=== PATIENT | female | born 1975 | race Caucasian/White ===

== ENCOUNTER 2021-06-03 10:10 | Observation (INO) | payer MEDICAID ==
[2021-06-03] MEDS ORDERED: Sodium Chloride 0.9% 2.5 ML Syringe FLUSH PRN (10:19)
[2021-06-03] MEDS ORDERED: Sodium Chloride 0.9% 10 ML Syringe FLUSH PRN (10:19)
--- NOTE | 2021-06-03 10:25 | EDM.PDOC ---
ED HPI GENERAL MEDICAL PROBLEM - General Chief Complaint: Neuro Symptoms/Deficits Stated Complaint: twitching and lft arm numb Time Seen by Provider: 06/03/21 10:20 - History of Present Illness INITIAL COMMENTS - FREE TEXT/NARRATIVE: 45-year-old female presents complaining of diffuse body shaking and paresthesias in the right upper extremity. Patient denies significant headache. Patient did states she had 8 or 9 drinks yesterday. Patient denies any head trauma. Patient recently got over Covid about a month ago. No history of cancer. No arm or leg weakness or additional neuro symptoms. Moderate symptoms without exacerbating or leaving factors. No chest pain or shortness of breath - Related Data Allergies Allergy/AdvReac Type Severity Reaction Status Date / Time clarithromycin [From Biaxin] Allergy Dizziness Verified 06/03/21 10:51 latex Allergy Hives Verified 06/03/21 10:51 ED ROS GENERAL - Review of Systems Review Of Systems: Comprehensive ROS is negative, except as noted in HPI. ED EXAM, GENERAL - Physical Exam Exam: See Below Free Text/Narrative:: CONSTITUTIONAL: well appearing in no acute distress SKIN: Warm, dry, and intact without rash HENT: Normocephalic, atraumatic, PULMONARY: clear to ausculation bilaterally. No rales, rhonchi, wheezing CARDIOVASCULAR: regular rate, No murmur, rubs, or gallops GASTROINTESTINAL: soft, nondistended, nontender NEUROLOGIC: normal speech, II-XII intact. Patient able to describe contacts without difficulty. Normal peripheral vision. Patient is alert and oriented. Patient with some minor paresthesias to the right arm. She has some mild diffuse body tremors but otherwise the additional light touch from 5 out of 5 power bilateral equal and symmetric in upper and lower extremity throughout without deficit. MUSCULOSKELETAL: no gross deformities, atraumatic PSYCHIATRIC: normal mood and affect #1 Interpretation Time: 10:59 EKG Interpretation Comments: 81, normal sinus rhythm, nonspecific ST/T findings. In contrast to the computer read there is no A. fib Course - Vital Signs Text/Narrative:: Differential diagnosis: CVA, central venous thrombosis, TIA, electrolyte abnormalities, cervical spine pathology, alcohol withdrawal, infection, other She presents as outlined above. CT imaging of the head and neck are unre vealing. Patient was given Ativan and is feeling better. The shaking and paresthesias have since resolved. Patient states convincingly that that she is not a heavy drinker and that she is not at risk for withdrawal. There is no definitive infectious source. The urine does have some leukocyte esterase but there is no dysuria. This has been sent for culture. There is no fever or leukocytosis. The patient upon requestioning states that she had slurred speech yesterday. She is concerned for CVA and thus arrangements have been made for admission, MRI and CVA work-up. Patient admitted for continued treatment and management Last Recorded V/S: Last Vital Signs Temp 36.3 C 06/03/21 10:19 Pulse 79 06/03/21 12:25 Resp 18 06/03/21 12:25 BP 164/89 H 06/03/21 12:25 Pulse Ox 98 06/03/21 12:25 - Orders/Labs/Meds Orders: Active Orders 24 hr Category Date Time Status Cardiac Monitoring [RC] . DIRECTED Care 06/03/21 10:20 Active Pulse Oximetry [RC] ASDIRECTED Care 06/03/21 10:20 Active Brain w wo Cont [MR] Stat Exams 06/03/21 12:58 Ordered CULTURE URINE [MREF] Stat Lab 06/03/21 11:20 Received DRUG SCREEN, URINE [URCHEM] Stat Lab 06/03/21 12:58 Ordered ETHANOL BLOOD MEDICAL [CHEM] Stat Lab 06/03/21 12:58 Ordered MAGNESIUM [CHEM] Stat Lab 06/03/21 12:58 Ordered Sodium Chloride 0.9% [Saline Flush] Med 06/03/21 10:19 Active 10 ml FLUSH ASDIRECTED PRN Sodium Chloride 0.9% [Saline Flush] Med 06/03/21 10:19 Active 2.5 ml FLUSH ASDIRECTED PRN Saline Lock Insert [OM.PC] Stat Oth 06/03/21 10:20 Ordered Medication Orders Sodium Chloride (Sodium Chloride 0.9% 10 Ml Syringe) 10 ml FLUSH ASDIRECTED PRN PRN Reason: Keep Vein Open Last Admin: 06/03/21 10:54 Dose: 10 ml Documented by: SAMI Sodium Chloride (Sodium Chloride 0.9% 2.5 Ml Syringe) 2.5 ml FLUSH ASDIRECTED PRN PRN Reason: Keep Vein Open Last Admin: 06/03/21 10:54 Dose: 2.5 ml Documented by: SAMI Labs: Laboratory Tests 06/03/21 06/03/21 06/03/21 Range/Units 10:16 10:16 10:16 WBC 7.02 (4.0-11.0) K/uL RBC 4.40 (4.30-5.90) M/uL Hgb 10.1 L (12.0-16.0) g/dL Hct 32.6 L (36.0-46.0) % MCV 74.1 L (80.0-98.0) fL MCH 23.0 L (27.0-32.0) pg MCHC 31.0 (31.0-37.0) g/dL RDW Std Deviation 49.1 (28.0-62.0) fl RDW Coeff of Nick 18 H (11.0-15.0) % Plt Count 449 H (150-400) K/uL MPV 9.00 (7.40-12.00) fL Neut % (Auto) 58.3 (48.0-80.0) % Lymph % (Auto) 30.2 (16.0-40.0) % [place] % (Auto) 8.1 (0.0-15.0) % Eos % (Auto) 2.3 (0.0-7.0) % Baso % (Auto) 1.1 (0.0-1.5) % Neut # (Auto) 4.1 (1.4-5.7) K/uL Lymph # (Auto) 2.1 (0.6-2.4) K/uL Wink[place] # (Auto) 0.6 (0.0-0.8) K/uL Eos # (Auto) 0.2 (0.0-0.7) K/uL Baso # (Auto) 0.1 (0.0-0.1) K/uL Nucleated RBC % 0.0 /100WBC Nucleated RBCs # 0 K/uL INR 0.98 APTT 23.9 (18.6-31.3) SEC Sodium 138 (136-145) mmol/L Potassium 4.0 (3.5-5.1) mmol/L Chloride 103 (98-107) mmol/L Carbon Dioxide 24.2 (21.0-32.0) mmol/L BUN 9 (7.0-18.0) mg/dL Creatinine 0.7 (0.6-1.0) mg/dL Est Cr Clr Drug Dosing 98.69 mL/min Estimated GFR (MDRD) > 60.0 ml/min Glucose 101 (74-106) mg/dL Calcium 8.8 (8.5-10.1) mg/dL Total Bilirubin 0.3 (0.2-1.0) mg/dL AST 40 H (15-37) IU/L ALT 35 (14-63) IU/L Alkaline Phosphatase 107 (46-116) U/L Troponin I < 0.050 (0.000-0.056) ng/mL Total Protein 8.2 (6.4-8.2) g/dL Albumin 3.5 (3.4-5.0) g/dL Globulin 4.7 H (2.6-4.0) g/dL Albumin/Globulin Ratio 0.7 L (0.9-1.6) Urine Color Urine Appearance Urine pH (5.0-8.0) Ur Specific [place] (1.001-1.035) Urine Protein (NEGATIVE) mg/dL Urine Glucose (UA) (NEGATIVE) mg/dL Urine Ketones (NEGATIVE) mg/dL Urine Occult Blood (NEGATIVE) Urine Nitrite (NEGATIVE) Urine Bilirubin (NEGATIVE) Urine Urobilinogen (<2.0) EU/dL Ur Leukocyte Esterase (NEGATIVE) Urine RBC (0-2/HPF) Urine WBC (0-5/HPF) Ur Epithelial Cells (NONE-FEW) Urine Bacteria (NEGATIVE) Urine Yeast 06/03/21 Range/Units 11:20 WBC (4.0-11.0) K/uL RBC (4.30-5.90) M/uL Hgb (12.0-16.0) g/dL Hct (36.0-46.0) % MCV (80.0-98.0) fL MCH (27.0-32.0) pg MCHC (31.0-37.0) g/dL RDW Std Deviation (28.0-62.0) fl RDW Coeff of Nick (11.0-15.0) % Plt Count (150-400) K/uL MPV (7.40-12.00) fL Neut % (Auto) (48.0-80.0) % Lymph % (Auto) (16.0-40.0) % [place]ink[place] % (Auto) (0.0-15.0) % Eos % (Auto) (0.0-7.0) % Baso % (Auto) (0.0-1.5) % Neut # (Auto) (1.4-5.7) K/uL Lymph # (Auto) (0.6-2.4) K/uL Wink[place] # (Auto) (0.0-0.8) K/uL Eos # (Auto) (0.0-0.7) K/uL Baso # (Auto) (0.0-0.1) K/uL Nucleated RBC % /100WBC Nucleated RBCs # K/uL INR APTT (18.6-31.3) SEC Sodium (136-145) mmol/L Potassium (3.5-5.1) mmol/L Chloride (98-107) mmol/L Carbon Dioxide (21.0-32.0) mmol/L BUN (7.0-18.0) mg/dL Creatinine (0.6-1.0) mg/dL Est Cr Clr Drug Dosing mL/min Estimated GFR (MDRD) ml/min Glucose (74-106) mg/dL Calcium (8.5-10.1) mg/dL Total Bilirubin (0.2-1.0) mg/dL AST (15-37) IU/L ALT (14-63) IU/L Alkaline Phosphatase (46-116) U/L Troponin I (0.000-0.056) ng/mL Total Protein (6.4-8.2) g/dL Albumin (3.4-5.0) g/dL Globulin (2.6-4.0) g/dL Albumin/Globulin Ratio (0.9-1.6) Urine Color YELLOW Urine Appearance HAZY Urine pH 6.0 (5.0-8.0) Ur Specific [place] <= 1.005 (1.001-1.035) Urine Protein NEGATIVE (NEGATIVE) mg/dL Urine Glucose (UA) NEGATIVE (NEGATIVE) mg/dL Urine Ketones NEGATIVE (NEGATIVE) mg/dL Urine Occult Blood TRACE-INTACT H (NEGATIVE) Urine Nitrite NEGATIVE (NEGATIVE) Urine Bilirubin NEGATIVE (NEGATIVE) Urine Urobilinogen 0.2 (<2.0) EU/dL Ur Leukocyte Esterase MODERATE H (NEGATIVE) Urine RBC 0-2 (0-2/HPF) Urine WBC 1-3 (0-5/HPF) Ur Epithelial Cells FEW (NONE-FEW) Urine Bacteria FEW (NEGATIVE) Urine Yeast RARE Meds: Medications Generic Name Dose Route Start Last Admin Trade Name Alexq PRN Reason Stop Dose Admin Sodium Chloride 10 ml 06/03/21 10:19 06/03/21 10:54 Sodium Chloride 0.9% 10 Ml Syringe FLUSH 10 ml ASDIRECTED PRN Administration Keep Vein Open Sodium Chloride 2.5 ml 06/03/21 10:19 06/03/21 10:54 Sodium Chloride 0.9% 2.5 Ml Syringe FLUSH 2.5 ml ASDIRECTED PRN Administration Keep Vein Open Discontinued Medications Generic Name Dose Route Start Last Admin Trade Name Alexq PRN Reason Stop Dose Admin Gadobenate Dimeglumine 20 ml 06/03/21 13:04 Gadobenate Dimeglumine 529 Mg/Ml 20 Ml Sdv IVPUSH 06/03/21 13:05 ONETIME STA Sodium Chloride 1,000 mls @ 999 mls/hr 06/03/21 11:26 06/03/21 11:43 Normal Saline IV 06/03/21 12:26 999 mls/hr .BOLUS ONE Administration Iopamidol 100 ml 06/03/21 10:41 06/03/21 10:42 Iopamidol 755 Mg/Ml 500 Ml Multipack Bottle IVPUSH 06/03/21 10:42 100 ml ONETIME STA Administration Lorazepam 2 mg 06/03/21 11:27 06/03/21 11:43 Lorazepam 2 Mg/Ml Sdv IVPUSH 06/03/21 11:28 2 mg ONETIME ONE Administration Departure - Departure Time of Disposition: 13:08 Disposition: Refer to Observation Condition: Good Clinical Impression: Paresthesia of right arm - Discharge Information Forms: ED Department Discharge Sepsis Event Note (ED) - Evaluation Sepsis Screening Result: No Definite Risk - Focused Exam Vital Signs: Vital Signs Temp Pulse Resp BP Pulse Ox 06/03/21 12:25 79 18 164/89 H 98 06/03/21 11:48 79 15 172/92 H 99 06/03/21 10:55 78 17 178/97 H 98 06/03/21 10:19 36.3 C 87 18 175/112 H 100 - My Orders Last 24 Hours: My Active Orders 06/03/21 10:19 Sodium Chloride 0.9% [Saline Flush] 10 ml FLUSH ASDIRECTED PRN Sodium Chloride 0.9% [Saline Flush] 2.5 ml FLUSH ASDIRECTED PRN 06/03/21 10:20 Cardiac Monitoring [RC] . DIRECTED Pulse Oximetry [RC] ASDIRECTED Saline Lock Insert [OM.PC] Stat 06/03/21 11:20 CULTURE URINE [MREF] Stat - Assessment/Plan Last 24 Hours: My Active Orders 06/03/21 10:19 Sodium Chloride 0.9% [Saline Flush] 10 ml FLUSH ASDIRECTED PRN Sodium Chloride 0.9% [Saline Flush] 2.5 ml FLUSH ASDIRECTED PRN 06/03/21 10:20 Cardiac Monitoring [RC] . DIRECTED Pulse Oximetry [RC] ASDIRECTED Saline Lock Insert [OM.PC] Stat 06/03/21 11:20 CULTURE URINE [MREF] Stat
[2021-06-03] MEDS ORDERED: Iopamidol 755 MG/ML 500 ML Multipack Bottle IVPUSH STA (10:41)
--- NOTE | 2021-06-03 11:04 | CT ---
DATE: 06/03/2021. CLINICAL HISTORY: Acute neurological deficit. TECHNIQUE: Standard helical CT image acquisition of the brain was performed. COMPARISON: None available. FINDINGS: There is no intracranial hemorrhage. No extra-axial collection, mass effect, or midline shift. Babb-white matter differentiation is preserved. Ventricles are normal in size and morphology for patient age. The calvarium is unremarkable. The orbits are unremarkable. Moderate mucosal thickening the left maxillary sinus as well as mucosal thickening and subtotal opacification of the bilateral sphenoid sinuses and ethmoid air cells, noting superimposed frothy secretions within the sphenoid sinuses. The mastoid air cells are unremarkable. The soft tissues are unremarkable. IMPRESSION: 1. No CT evidence of acute intracranial abnormality. 2. Moderate paranasal sinus disease, as above. Please note that all CT scans at this facility use dose modulation, iterative reconstruction, and/or weight-based dosing when appropriate to reduce radiation dose to as low as reasonably achievable. Dictated by Ibrahima Vieira MD @ 06/03/2021 11:03:09 AM (Electronically Signed)
--- NOTE | 2021-06-03 11:10 | CT ---
DATE: 06/03/2021. CLINICAL HISTORY: Acute neurological deficit. TECHNIQUE: Standard helical CT image acquisition through the head was performed after intravenous contrast bolus enhancement. Multiplanar reconstructed images were performed and interpreted. COMPARISON: None available. FINDINGS: No intracranial proximal large vessel occlusion or flow-limiting no stenosis. The major dural venous sinuses and deep venous system are patent. IMPRESSION: 1. No intracranial proximal large vessel occlusion or flow-limiting no stenosis. 2. The major dural venous sinuses and deep venous system are patent. Please note that all CT scans at this facility use dose modulation, iterative reconstruction, and/or weight-based dosing when appropriate to reduce radiation dose to as low as reasonably achievable. Dictated by Ibrahima Vieira MD @ 06/03/2021 11:09:21 AM (Electronically Signed)
--- NOTE | 2021-06-03 11:17 | CR ---
Indication: Chest pain Comparison: None available. Technique: Single AP view chest Findings: There is hyperinflation and chronic interstitial change. There is no focal consolidation, effusion, or pneumothorax. The cardiomediastinal silhouette is within normal limits. The bony thorax is grossly intact. Impression: No acute cardiopulmonary abnormality. Dictated by Ephraim Mackey MD @ 06/03/2021 11:15:38 AM (Electronically Signed)
[2021-06-03 11:25] LABS: BLOOD UREA NITROGEN,BUN 9 mg/dL (7.0-18.0); CARBON DIOXIDE,CO2 24.2 mmol/L (21.0-32.0); CHLORIDE,CL 103 mmol/L (98-107); GLUCOSE RANDOM 101 mg/dL (74-106); SODIUM,NA 138 mmol/L (136-145)
[2021-06-03] MEDS ORDERED: Sodium Chloride 0.9% 1,000 ML IV ONE (11:26)
[2021-06-03] MEDS ORDERED: LORazepam 2 MG/ML SDV IVPUSH ONE (11:27)
--- NOTE | 2021-06-03 11:31 | CT ---
DATE: 06/03/2021. CLINICAL HISTORY: Acute stroke. TECHNIQUE: Standard helical CT image acquisition through the neck was performed after intravenous contrast bolus enhancement. Multiplanar reconstructed images were performed and interpreted. COMPARISON: None available. FINDINGS: The origins of the great vessels from the aortic arch are patent. The origins of the right and left vertebral arteries are patent. The common carotid arteries are patent. No significant luminal stenoses of the proximal internal carotid arteries by NASCET criteria. The more distal cervical segments of the internal carotid arteries are patent. The cervical segments of the vertebral arteries are patent. Peripheral blebs are seen at the visualized lung apices. The thyroid gland is unremarkable. There are degenerative changes in the cervical spine. IMPRESSION: Patent cervical arterial vasculature without hemodynamically significant luminal stenosis. Please note that all CT scans at this facility use dose modulation, iterative reconstruction, and/or weight-based dosing when appropriate to reduce radiation dose to as low as reasonably achievable. Dictated by Ibrahima Vieira MD @ 06/03/2021 11:30:46 AM (Electronically Signed)
[2021-06-03] MEDS ORDERED: Gadobenate Dimeglumine 529 MG/ML 20 ML SDV IVPUSH STA (13:04)
--- NOTE | 2021-06-03 13:27 | PCM.HP.2 ---
H&P History of Present Illness - General Date of Service: 06/03/21 - History of Present Illness Initial Comments - Free Text/Narative: 45-year-old female presents to the ER with complaints of right upper extremity paresthesias and tremors. Patient endorses slurred speech yesterday. Stroke code was called. Patient is a poor historian regarding past medical history. Patient denies headaches, lightheadedness, dizziness or loss of consciousness. Patient states she had COVID over 1 month ago. Patient denies current weakness, numbness, paresthesias, slurred speech, difficulty ambulating changes in vision. Patient states she had 8-10 shots of liquor yesterday. ER course: Neurologic exam unremarkable except minor paresthesias to right arm. EKG is normal sinus rhythm, nonspecific ST/T findings. Blood pressure 164/89. Temperature 36.3. Pulse 79. RR 18. CT head and neck was unremarkable. Patient received Ativan and began feeling better. Shaking and paresthesia r esolved. Patient refused heavy alcohol use to the ER. WBC 7. Hemoglobin 10.1. MCV 74.1. Platelet count 449. INR 0.98. BMP unremarkable. AST 40. Upon chart review, it appears she has a history of hypertension, CHF, daily alcohol consumption and saw cardiology in January 2021 for heart failure. According to cardiology note, patient had stated when she was 19 years old she was diagnosed with CHF and had a heart attack but having a for . Note also states the details were not very clear. As per cardiology note, she has had episodes of blood pressure greater than 160 systolic. Episode of associated chest pain and severe headache but no timeline. Patient is on carvedilol 10 mg and Lasix 20 mg. Stress test was negative for ischemia. As per cardiology note: She drinks a sixpack every day. Smokes 2 packs/week. 10 cups of coffee daily. 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: , Other (See Below) Other OB/BYN History: ovarian cysts Musculoskeletal History: Reports: RA Neurological History: Reports: None Psychiatric History: Reports: None Endocrine/Metabolic History: Reports: None Hematologic History: Reports: None Immunologic History: Reports: None Oncologic (Cancer) History: Reports: None Dermatologic History: Reports: None - Infectious Disease History Infectious Disease History: Reports: Chicken Pox - Past Surgical History Head Surgeries/Procedures: Reports: None HEENT Surgical History: Reports: None Cardiovascular Surgical History: Reports: None Respiratory Surgical History: Reports: None GI Surgical History: Reports: None Female Surgical History: Reports: Section, Tubal Ligation Endocrine Surgical History: Reports: None Neurological Surgical History: Reports: None Musculoskeletal Surgical History: Reports: None Oncologic Surgical History: Reports: None Dermatological Surgical History: Reports: None Social & Family History - Family History Family Medical History: No Pertinent Family History - Caffeine Use Caffeine Use: Reports: None - Recreational Drug Use Recreational Drug Use: No H&P Review of Systems - Review of Systems: Review Of Systems: See Below General: Denies: Fever, Diaphoresis HEENT: Denies: Headaches, Vertigo, Visual Changes Pulmonary: Denies: Shortness of Breath, Wheezing, Pleuritic Chest Pain Cardiovascular: Denies: Chest Pain, Palpitations Gastrointestinal: Denies: Abdominal Pain, Diarrhea, Nausea, Vomiting Genitourinary: Denies: Dysuria, Burning, Pain, Urgency Skin: Denies: Rash Neurological: Reports: Numbness, Paresthesia, Tingling, Tremors, Trouble Speaking. Denies: Confusion, Dizziness, Headache, Difficulty Walking, Weakness Hematologic/Lymphatic: Denies: Easy Bleeding, Easy Bruising Exam - Exam Exam: See Below - Vital Signs Vital Signs: Last Vital Signs Temp 97.4 F 06/03/21 10:19 Pulse 79 06/03/21 12:25 Resp 18 06/03/21 12:25 BP 164/89 H 06/03/21 12:25 Pulse Ox 98 06/03/21 12:25 Weight: 169 lb 1.6 oz - Exam General: Alert, Oriented, Mild Distress HEENT: Conjunctiva Clear, EACs Clear, EOMI, Hearing Intact, Mucosa Moist & [place] Neck: Supple, Trachea Midline Lungs: Clear to Auscultation Cardiovascular: Regular Rate, Regular Rhythm GI/Abdominal Exam: Normal Bowel Sounds, Soft, Non-Tender Back Exam: Normal Inspection Extremities: Normal Inspection, Non-Tender. No: Pedal Edema Peripheral Pulses: 2+: Dorsalis Pedis (L), Dorsalis Pedis (R) Skin: Warm, Dry, Intact Neurological: Cranial Nerves Intact, Reflexes Equal Bilateral, Normal Speech, Normal Tone, Sensation Intact. No: Focal Deficit - Patient Data Lab Results Last 24 hrs: Laboratory Results - last 24 hr 06/03/21 06/03/21 06/03/21 Range/Units 10:16 10:16 10:16 WBC 7.02 (4.0-11.0) K/uL RBC 4.40 (4.30-5.90) M/uL Hgb 10.1 L (12.0-16.0) g/dL Hct 32.6 L (36.0-46.0) % MCV 74.1 L (80.0-98.0) fL MCH 23.0 L (27.0-32.0) pg MCHC 31.0 (31.0-37.0) g/dL RDW Std Deviation 49.1 (28.0-62.0) fl RDW Coeff of Nick 18 H (11.0-15.0) % Plt Count 449 H (150-400) K/uL MPV 9.00 (7.40-12.00) fL Neut % (Auto) 58.3 (48.0-80.0) % Lymph % (Auto) 30.2 (16.0-40.0) % [place] % (Auto) 8.1 (0.0-15.0) % Eos % (Auto) 2.3 (0.0-7.0) % Baso % (Auto) 1.1 (0.0-1.5) % Neut # (Auto) 4.1 (1.4-5.7) K/uL Lymph # (Auto) 2.1 (0.6-2.4) K/uL [place] # (Auto) 0.6 (0.0-0.8) K/uL Eos # (Auto) 0.2 (0.0-0.7) K/uL Baso # (Auto) 0.1 (0.0-0.1) K/uL Nucleated RBC % 0.0 /100WBC Nucleated RBCs # 0 K/uL INR 0.98 APTT 23.9 (18.6-31.3) SEC Sodium 138 (136-145) mmol/L Potassium 4.0 (3.5-5.1) mmol/L Chloride 103 (98-107) mmol/L Carbon Dioxide 24.2 (21.0-32.0) mmol/L BUN 9 (7.0-18.0) mg/dL Creatinine 0.7 (0.6-1.0) mg/dL Est Cr Clr Drug Dosing 98.69 mL/min Estimated GFR (MDRD) > 60.0 ml/min Glucose 101 (74-106) mg/dL Calcium 8.8 (8.5-10.1) mg/dL Total Bilirubin 0.3 (0.2-1.0) mg/dL AST 40 H (15-37) IU/L ALT 35 (14-63) IU/L Alkaline Phosphatase 107 (46-116) U/L Troponin I < 0.050 (0.000-0.056) ng/mL Total Protein 8.2 (6.4-8.2) g/dL Albumin 3.5 (3.4-5.0) g/dL Globulin 4.7 H (2.6-4.0) g/dL Albumin/Globulin Ratio 0.7 L (0.9-1.6) Urine Color Urine Appearance Urine pH (5.0-8.0) Ur Specific [place] (1.001-1.035) Urine Protein (NEGATIVE) mg/dL Urine Glucose (UA) (NEGATIVE) mg/dL Urine Ketones (NEGATIVE) mg/dL Urine Occult Blood (NEGATIVE) Urine Nitrite (NEGATIVE) Urine Bilirubin (NEGATIVE) Urine Urobilinogen (<2.0) EU/dL Ur Leukocyte Esterase (NEGATIVE) Urine RBC (0-2/HPF) Urine WBC (0-5/HPF) Ur Epithelial Cells (NONE-FEW) Urine Bacteria (NEGATIVE) Urine Yeast 06/03/ Range/Units 11:20 WBC (4.0-11.0) K/uL RBC (4.30-5.90) M/uL Hgb (12.0-16.0) g/dL Hct (36.0-46.0) % MCV (80.0-98.0) fL MCH (27.0-32.0) pg MCHC (31.0-37.0) g/dL RDW Std Deviation (28.0-62.0) fl RDW Coeff of Nick (11.0-15.0) % Plt Count (150-400) K/uL MPV (7.40-12.00) fL Neut % (Auto) (48.0-80.0) % Lymph % (Auto) (16.0-40.0) % [place] % (Auto) (0.0-15.0) % Eos % (Auto) (0.0-7.0) % Baso % (Auto) (0.0-1.5) % Neut # (Auto) (1.4-5.7) K/uL Lymph # (Auto) (0.6-2.4) K/uL [place] # (Auto) (0.0-0.8) K/uL Eos # (Auto) (0.0-0.7) K/uL Baso # (Auto) (0.0-0.1) K/uL Nucleated RBC % /100WBC Nucleated RBCs # K/uL INR APTT (18.6-31.3) SEC Sodium (136-145) mmol/L Potassium (3.5-5.1) mmol/L Chloride (98-107) mmol/L Carbon Dioxide (21.0-32.0) mmol/L BUN (7.0-18.0) mg/dL Creatinine (0.6-1.0) mg/dL Est Cr Clr Drug Dosing mL/min Estimated GFR (MDRD) ml/min Glucose (74-106) mg/dL Calcium (8.5-10.1) mg/dL Total Bilirubin (0.2-1.0) mg/dL AST (15-37) IU/L ALT (14-63) IU/L Alkaline Phosphatase (46-116) U/L Troponin I (0.000-0.056) ng/mL Total Protein (6.4-8.2) g/dL Albumin (3.4-5.0) g/dL Globulin (2.6-4.0) g/dL Albumin/Globulin Ratio (0.9-1.6) Urine Color YELLOW Urine Appearance HAZY Urine pH 6.0 (5.0-8.0) Ur Specific [place] <= 1.005 (1.001-1.035) Urine Protein NEGATIVE (NEGATIVE) mg/dL Urine Glucose (UA) NEGATIVE (NEGATIVE) mg/dL Urine Ketones NEGATIVE (NEGATIVE) mg/dL Urine Occult Blood TRACE-INTACT H (NEGATIVE) Urine Nitrite NEGATIVE (NEGATIVE) Urine Bilirubin NEGATIVE (NEGATIVE) Urine Urobilinogen 0.2 (<2.0) EU/dL Ur Leukocyte Esterase MODERATE H (NEGATIVE) Urine RBC 0-2 (0-2/HPF) Urine WBC 1-3 (0-5/HPF) Ur Epithelial Cells FEW (NONE-FEW) Urine Bacteria FEW (NEGATIVE) Urine Yeast RARE Result Diagrams: 06/03/21 10:16 06/03/21 10:16 Sepsis Event Note - Evaluation Sepsis Screening Result: No Definite Risk - Focused Exam Vital Signs: Vital Signs Temp Pulse Resp BP Pulse Ox 06/03/21 12:25 79 18 164/89 H 98 06/03/21 11:48 79 15 172/92 H 99 06/03/21 10:55 78 17 178/97 H 98 06/03/21 10:19 97.4 F 87 18 175/112 H 100 - Problem List (1) Tremor SNOMED Code(s): 24158095 ICD Code: R25.1 - TREMOR, UNSPECIFIED Status: Acute Current Visit: Yes (2) History of alcohol abuse SNOMED Code(s): 930528630 ICD Code: F10.11 - ALCOHOL ABUSE, IN REMISSION Status: Acute Current Visit: Yes (3) Paresthesia of right arm SNOMED Code(s): 47461763685486150 ICD Code: R20.2 - PARESTHESIA OF SKIN Status: Acute Current Visit: Yes Problem List Initiated/Reviewed/Updated: Yes Orders Last 24hrs: Active Orders 24 hr Category Date Time Status Cardiac Monitoring [RC] . DIRECTED Care 06/03/21 10:20 Active Pulse Oximetry [RC] ASDIRECTED Care 06/03/21 10:20 Active Brain w wo Cont [MR] Stat Exams 06/03/21 12:58 Ordered CULTURE URINE [MREF] Stat Lab 06/03/21 11:20 Received DRUG SCREEN, URINE [URCHEM] Stat Lab 06/03/21 11:20 Received ETHANOL BLOOD MEDICAL [CHEM] Stat Lab 06/03/21 10:16 Received MAGNESIUM [CHEM] Stat Lab 06/03/21 10:16 Received Sodium Chloride 0.9% [Saline Flush] Med 06/03/21 10:19 Active 10 ml FLUSH ASDIRECTED PRN Sodium Chloride 0.9% [Saline Flush] Med 06/03/21 10:19 Active 2.5 ml FLUSH ASDIRECTED PRN Saline Lock Insert [OM.PC] Stat Oth 06/03/21 10:20 Ordered Medication Orders Sodium Chloride (Sodium Chloride 0.9% 10 Ml Syringe) 10 ml FLUSH ASDIRECTED PRN PRN Reason: Keep Vein Open Last Admin: 06/03/21 10:54 Dose: 10 ml Documented by: SAMI Sodium Chloride (Sodium Chloride 0.9% 2.5 Ml Syringe) 2.5 ml FLUSH ASDIRECTED PRN PRN Reason: Keep Vein Open Last Admin: 06/03/21 10:54 Dose: 2.5 ml Documented by: SAMI Assessment/Plan Comment:: 45-year-old female admitted with paresthesias and tremor. -Stroke work-up: [place], vitamin B12 level, echocardiogram, ESR, lipid panel, syphi lis screen, TSH. -Monitor telemetry. -History of alcohol abuse. Patient had 8-10 shots yesterday. Upon chart review, patient has history of alcohol abuse unable. [facility] protocol in place.
[2021-06-03] MEDS ORDERED: Ibuprofen 200 MG Tab PO PRN (13:43)
[2021-06-03] MEDS ORDERED: Ondansetron 4 MG/2 ML SDV IVPUSH PRN (13:43)
[2021-06-03] MEDS ORDERED: LORazepam 2 MG/ML SDV IVPUSH PRN (13:43)
[2021-06-03] MEDS ORDERED: Acetaminophen 325 MG Tab PO PRN (13:43)
[2021-06-03] MEDS ORDERED: Polyethylene Glycol 3350 Powder 17 GM Packet PO PRN (13:43)
[2021-06-03] MEDS ORDERED: Albuterol/Ipratropium 3.0-0.5 MG/3 ML Neb Soln NEB PRN (13:43)
--- NOTE | 2021-06-03 14:31 | MR ---
INDICATION: Slurred speech. Numbness. TECHNIQUE: Multiplanar multisequence MR imaging acquired through the brain prior to and following intravenous contrast. COMPARISON: CT brain 06/03/2021. FINDINGS: Artifact significantly degrades the susceptibility weighted sequence. Motion artifact degrades the postcontrast sequences. The ventricles and sulci are within normal limits for patient age. No mass effect or midline shift. No parenchymal signal abnormalities. No diffusion restriction to suggest acute infarction. No intracranial hemorrhage or pathologic extra-axial fluid collection. No pathologic intracranial enhancement. The major arterial flow voids of the skullbase are preserved. The globes are symmetric. Moderately severe opacification of the left maxillary and sphenoid sinuses. The mastoid air cells are clear. IMPRESSION: 1. No acute intracranial abnormality. 2. Moderately severe left maxillary and sphenoid sinuses inflammatory mucosal disease. Dictated by Chino Can MD @ 06/03/2021 2:30:24 PM (Electronically Signed)
[2021-06-03 14:35] LABS: CORONAVIRUS COVID-19 NAA POSITIVE (NEGATIVE); INFLUENZA A NAA NEGATIVE (NEGATIVE); INFLUENZA B NAA NEGATIVE (NEGATIVE); RESPIRATORY SYNCYTIAL VIR NAA NEGATIVE (NEGATIVE)
[2021-06-03] MEDS ORDERED: Thiamine 100 MG in Sodium Chloride 0.9% 100 ML IV ONE (14:56)
[2021-06-03] MEDS ORDERED: Thiamine 200 MG/2 ML MDV IVPUSH ONE (15:15)
[2021-06-03] MEDS: ALOE TOP SCH (20:36)
[2021-06-03] MEDS: [UNRECOGNIZED DRUG - OTHER] TOP SCH (20:36)
[2021-06-03] MEDS: BENZOCAINE TOP SCH (20:36)
[2021-06-03] MEDS ORDERED: Folic Acid 1 MG Tab PO SCH (21:00)
[2021-06-04 07:17] LABS: BLOOD UREA NITROGEN,BUN 9 mg/dL (7.0-18.0); CARBON DIOXIDE,CO2 27.5 mmol/L (21.0-32.0); CHLORIDE,CL 104 mmol/L (98-107); GLUCOSE RANDOM 87 mg/dL (74-106); POTASSIUM,K 3.9 mmol/L (3.5-5.1); SODIUM,NA 140 mmol/L (136-145)
[2021-06-04] MEDS ORDERED: CARVEDILOL 20 MG PO SCH (09:00)
[2021-06-04] MEDS ORDERED: Ferrous Sulfate 325 MG Tab PO SCH (09:00)
[2021-06-04] MEDS ORDERED: Furosemide 20 MG Tab PO SCH (09:00)
--- NOTE | 2021-06-04 10:04 | PCM.DCSUM1 ---
Discharge Summary - Hospital Course Free Text/Narrative:: 45-year-old female admitted for upper extremity paresthesias, tremors and alcohol withdrawal. Patient received Ativan in the ER and symptoms subsided. Patient was observed overnight, CIWA's were 00 and 3. Patient did require Ativan x1. This morning she appears agitated. She states she wants to go home. Patient was worked up for neurologic etiology. Lipid panel, B12, TSH were unremarkable. Brain imaging was unremarkable. Patient is drinking 8-10 shots of liquor per day. She is not willing to cut back. Patient tested positive for Covid 1 month ago, as per history taken. Patient is on room air. No treatment for Covid. ER course: Neurologic exam unremarkable except minor paresthesias to right arm. EKG is normal sinus rhythm, nonspecific ST/T findings. Blood pressure 164/89. Temperature 36.3. Pulse 79. RR 18. CT head and neck was unremarkable. Patient received Ativan and began feeling better. Shaking and paresthesia resolved. Patient refused heavy alcohol use to the ER. WBC 7. Hemoglobin 10.1. MCV 74.1. Platelet count 449. INR 0.98. BMP unremarkable. AST 40. Upon chart review, it appears she has a history of hypertension, CHF, daily alcohol consumption and saw cardiology in January 2021 for heart failure. According to cardiology note, patient had stated when she was 19 years old she was diagnosed with CHF and had a heart attack but having a for . Note also states the details were not very clear. As per cardiology note, she has had episodes of blood pressure greater than 160 systolic. Patient is on carvedilol 10 mg and Lasix 20 mg. Stress test was negative for ischemia. As per cardiology note: She drinks a sixpack every day. Smokes 2 packs/week. 10 cups of coffee daily. - Discharge Data Discharge Date: 06/04/21 Discharge Disposition: Home, Self-Care 01 Condition: Stable - Referral to Home Health Primary Care Physician: Jessica Knight, DO - Discharge Diagnosis/Problem(s) (1) Tremor SNOMED Code(s): 79669563 ICD Code: R25.1 - TREMOR, UNSPECIFIED Status: Acute Current Visit: Yes (2) History of alcohol abuse SNOMED Code(s): 501664440 ICD Code: F10.11 - ALCOHOL ABUSE, IN REMISSION Status: Acute Current Visit: Yes (3) Paresthesia of right arm SNOMED Code(s): 94718958747091286 ICD Code: R20.2 - PARESTHESIA OF SKIN Status: Acute Current Visit: Yes - Patient Instructions Other/Special Instructions: If you experience chest pain, palpitations, severe sudden headache, lightheadedness, loss of consciousness, weakness, numbness, severe tremors and sweating please seek medical attention immediately. As discussed, it is very important that you decrease daily alcohol use. Please speak with your primary care doctor regarding management of your blood pressure. - Discharge Plan *PRESCRIPTION DRUG MONITORING PROGRAM REVIEWED*: Not Applicable *COPY OF PRESCRIPTION DRUG MONITORING REPORT IN PATIENT IVAN: Not Applicable Home Medications: Home Meds Benzocaine/Resorcin/Aloe/E,A,D [Vagisil Cream] 28 gram TOP Q12HR 06/03/21 [History] Ferrous Sulfate 324 mg PO DAILY 06/03/21 [History] Furosemide 20 mg PO DAILY 06/03/21 [History] carvediloL [Carvedilol] 20 mg PO DAILY 06/03/21 [History] Forms: ED Department Discharge Referrals: Jessica Knight DO [Primary Care Provider] - - Discharge Summary/Plan Comment DC Time >30 min.: Yes Total # of Minutes for Discharge Time: 45 Discharge Summary/Plan Comment: 45 - Review of Systems General: Denies: Fever, Chills, Night Sweats HEENT: Denies: Headaches, Visual Changes Pulmonary: Denies: Shortness of Breath, Pleuritic Chest Pain, Cough Cardiovascular: Denies: Chest Pain, Palpitations Gastrointestinal: Denies: Abdominal Pain, Constipation, Nausea, Vomiting Genitourinary: Denies: Dysuria Musculoskeletal: Denies: Leg Pain Neurological: Denies: Confusion, Dizziness, Numbness, Paresthesia, Pre-Existing Deficit - Patient Data Vitals - Most Recent: Last Vital Signs Temp 97.9 F 06/04/21 08:39 Pulse 88 06/04/21 08:39 Resp 17 06/04/21 08:39 BP 157/97 H 06/04/21 08:50 Pulse Ox 98 06/04/21 08:39 Weight - Most Recent: 186 lb 6.4 oz I&O - Last 24 hours: Intake & Output 06/03/21 06/04/2106/04/21 22:59 06:59 14:59 Intake Total 500 Output Total 1400 Balance -900 Lab Results - Last 24 hrs: Laboratory Results - last 24 hr 06/03/21 06/03/21 06/03/21 Range/Units 10:16 10:16 10:16 WBC 7.02 (4.0-11.0) K/uL RBC 4.40 (4.30-5.90) M/uL Hgb 10.1 L (12.0-16.0) g/dL Hct 32.6 L (36.0-46.0) % MCV 74.1 L (80.0-98.0) fL MCH 23.0 L (27.0-32.0) pg MCHC 31.0 (31.0-37.0) g/dL RDW Std Deviation 49.1 (28.0-62.0) fl RDW Coeff of Nick 18 H (11.0-15.0) % Plt Count 449 H (150-400) K/uL MPV 9.00 (7.40-12.00) fL Neut % (Auto) 58.3 (48.0-80.0) % Lymph % (Auto) 30.2 (16.0-40.0) % Kidder % (Auto) 8.1 (0.0-15.0) % Eos % (Auto) 2.3 (0.0-7.0) % Baso % (Auto) 1.1 (0.0-1.5) % Neut # (Auto) 4.1 (1.4-5.7) K/uL Lymph # (Auto) 2.1 (0.6-2.4) K/uL Kidder # (Auto) 0.6 (0.0-0.8) K/uL Eos # (Auto) 0.2 (0.0-0.7) K/uL Baso # (Auto) 0.1 (0.0-0.1) K/uL Nucleated RBC % 0.0 /100WBC Nucleated RBCs # 0 K/uL ESR (0-19) mm/hr INR 0.98 APTT 23.9 (18.6-31.3) SEC Sodium 138 (136-145) mmol/L Potassium 4.0 (3.5-5.1) mmol/L Chloride 103 (98-107) mmol/L Carbon Dioxide 24.2 (21.0-32.0) mmol/L BUN 9 (7.0-18.0) mg/dL Creatinine 0.7 (0.6-1.0) mg/dL Est Cr Clr Drug Dosing 98.69 mL/min Estimated GFR (MDRD) > 60.0 ml/min Glucose 101 (74-106) mg/dL Calcium 8.8 (8.5-10.1) mg/dL Phosphorus (2.6-4.7) mg/dL Magnesium (1.8-2.4) mg/dL Total Bilirubin 0.3 (0.2-1.0) mg/dL AST 40 H (15-37) IU/L ALT 35 (14-63) IU/L Alkaline Phosphatase 107 (46-116) U/L Troponin I < 0.050 (0.000-0.056) ng/mL Total Protein 8.2 (6.4-8.2) g/dL Albumin 3.5 (3.4-5.0) g/dL Globulin 4.7 H (2.6-4.0) g/dL Albumin/Globulin Ratio 0.7 L (0.9-1.6) Triglycerides (0-200) mg/dL Cholesterol (50-200) mg/dL LDL Cholesterol, Calc (60-180) mg/dL VLDL Cholesterol (5-55) mg/dL HDL Cholesterol (40-60) mg/dL Cholesterol/HDL Ratio (3.3-6.0) Vitamin B12 (193-986) pg/mL TSH, Ultra Sensitive (0.36-3.74) uIU/mL Urine Color Urine Appearance Urine pH (5.0-8.0) Ur Specific [place] (1.001-1.035) Urine Protein (NEGATIVE) mg/dL Urine Glucose (UA) (NEGATIVE) mg/dL Urine Ketones (NEGATIVE) mg/dL Urine Occult Blood (NEGATIVE) Urine Nitrite (NEGATIVE) Urine Bilirubin (NEGATIVE) Urine Urobilinogen (<2.0) EU/dL Ur Leukocyte Esterase (NEGATIVE) Urine RBC (0-2/HPF) Urine WBC (0-5/HPF) Ur Epithelial Cells (NONE-FEW) Urine Bacteria (NEGATIVE) Urine Yeast Urine HCG, Qual (NEGATIVE) Urine Opiates Screen (NEGATIVE) Ur Oxycodone Screen (NEGATIVE) Urine Methadone Screen (NEGATIVE) Ur Barbiturates Screen (NEGATIVE) Ur Phencyclidine Scrn (NEGATIVE) Ur Amphetamine Screen (NEGATIVE) U Methamphetamines Scrn (NEGATIVE) U Benzodiazepines Scrn (NEGATIVE) U Cocaine Metab Screen (NEGATIVE) U Marijuana (THC) Screen (NEGATIVE) Ethyl Alcohol mg/dL Influenza Type A RNA (NEGATIVE) RSV RNA (INAAT) (NEGATIVE) Influenza Type B RNA (NEGATIVE) SARS-CoV-2 RNA (STEPHANIE) (NEGATIVE) 06/03/21 06/03/21 06/03/21 Range/Units 10:16 10:16 10:16 WBC (4.0-11.0) K/uL RBC (4.30-5.90) M/uL Hgb (12.0-16.0) g/dL Hct (36.0-46.0) % MCV (80.0-98.0) fL MCH (27.0-32.0) pg MCHC (31.0-37.0) g/dL RDW Std Deviation (28.0-62.0) fl RDW Coeff of Nick (11.0-15.0) % Plt Count (150-400) K/uL MPV (7.40-12.00) fL Neut % (Auto) (48.0-80.0) % Lymph % (Auto) (16.0-40.0) % Kidder % (Auto) (0.0-15.0) % Eos % (Auto) (0.0-7.0) % Baso % (Auto) (0.0-1.5) % Neut # (Auto) (1.4-5.7) K/uL Lymph # (Auto) (0.6-2.4) K/uL Kidder # (Auto) (0.0-0.8) K/uL Eos # (Auto) (0.0-0.7) K/uL Baso # (Auto) (0.0-0.1) K/uL Nucleated RBC % /100WBC Nucleated RBCs # K/uL ESR 21 H (0-19) mm/hr INR APTT (18.6-31.3) SEC Sodium (136-145) mmol/L Potassium (3.5-5.1) mmol/L Chloride (98-107) mmol/L Carbon Dioxide (21.0-32.0) mmol/L BUN (7.0-18.0) mg/dL Creatinine (0.6-1.0) mg/dL Est Cr Clr Drug Dosing mL/min Estimated GFR (MDRD) ml/min Glucose (74-106) mg/dL Calcium (8.5-10.1) mg/dL Phosphorus 2.9 (2.6-4.7) mg/dL Magnesium 2.1 (1.8-2.4) mg/dL Total Bilirubin (0.2-1.0) mg/dL AST (15-37) IU/L ALT (14-63) IU/L Alkaline Phosphatase (46-116) U/L Troponin I (0.000-0.056) ng/mL Total Protein (6.4-8.2) g/dL Albumin (3.4-5.0) g/dL Globulin (2.6-4.0) g/dL Albumin/Globulin Ratio (0.9-1.6) Triglycerides (0-200) mg/dL Cholesterol (50-200) mg/dL LDL Cholesterol, Calc (60-180) mg/dL VLDL Cholesterol (5-55) mg/dL HDL Cholesterol (40-60) mg/dL Cholesterol/HDL Ratio (3.3-6.0) Vitamin B12 (193-986) pg/mL TSH, Ultra Sensitive (0.36-3.74) uIU/mL Urine Color Urine Appearance Urine pH (5.0-8.0) Ur Specific [place] (1.001-1.035) Urine Protein (NEGATIVE) mg/dL Urine Glucose (UA) (NEGATIVE) mg/dL Urine Ketones (NEGATIVE) mg/dL Urine Occult Blood (NEGATIVE) Urine Nitrite (NEGATIVE) Urine Bilirubin (NEGATIVE) Urine Urobilinogen (<2.0) EU/dL Ur Leukocyte Esterase (NEGATIVE) Urine RBC (0-2/HPF) Urine WBC (0-5/HPF) Ur Epithelial Cells (NONE-FEW) Urine Bacteria (NEGATIVE) Urine Yeast Urine HCG, Qual (NEGATIVE) Urine Opiates Screen (NEGATIVE) Ur Oxycodone Screen (NEGATIVE) Urine Methadone Screen (NEGATIVE) Ur Barbiturates Screen (NEGATIVE) Ur Phencyclidine Scrn (NEGATIVE) Ur Amphetamine Screen (NEGATIVE) U Methamphetamines Scrn (NEGATIVE) U Benzodiazepines Scrn (NEGATIVE) U Cocaine Metab Screen (NEGATIVE) U Marijuana (THC) Screen (NEGATIVE) Ethyl Alcohol < 3.0 mg/dL Influenza Type A RNA (NEGATIVE) RSV RNA (INAAT) (NEGATIVE) Influenza Type B RNA (NEGATIVE) SARS-CoV-2 RNA (STEPHANIE) (NEGATIVE) 06/03/21 06/03/21 06/03/21 Range/Units 10:16 10:16 11:20 WBC (4.0-11.0) K/uL RBC (4.30-5.90) M/uL Hgb (12.0-16.0) g/dL Hct (36.0-46.0) % MCV (80.0-98.0) fL MCH (27.0-32.0) pg MCHC (31.0-37.0) g/dL RDW Std Deviation (28.0-62.0) fl RDW Coeff of Nick (11.0-15.0) % Plt Count (150-400) K/uL MPV (7.40-12.00) fL Neut % (Auto) (48.0-80.0) % Lymph % (Auto) (16.0-40.0) % Kidder % (Auto) (0.0-15.0) % Eos % (Auto) (0.0-7.0) % Baso % (Auto) (0.0-1.5) % Neut # (Auto) (1.4-5.7) K/uL Lymph # (Auto) (0.6-2.4) K/uL Kidder # (Auto) (0.0-0.8) K/uL Eos # (Auto) (0.0-0.7) K/uL Baso # (Auto) (0.0-0.1) K/uL Nucleated RBC % /100WBC Nucleated RBCs # K/uL ESR (0-19) mm/hr INR APTT (18.6-31.3) SEC Sodium (136-145) mmol/L Potassium (3.5-5.1) mmol/L Chloride (98-107) mmol/L Carbon Dioxide (21.0-32.0) mmol/L BUN (7.0-18.0) mg/dL Creatinine (0.6-1.0) mg/dL Est Cr Clr Drug Dosing mL/min Estimated GFR (MDRD) ml/min Glucose (74-106) mg/dL Calcium (8.5-10.1) mg/dL Phosphorus (2.6-4.7) mg/dL Magnesium (1.8-2.4) mg/dL Total Bilirubin (0.2-1.0) mg/dL AST (15-37) IU/L ALT (14-63) IU/L Alkaline Phosphatase (46-116) U/L Troponin I (0.000-0.056) ng/mL Total Protein (6.4-8.2) g/dL Albumin (3.4-5.0) g/dL Globulin (2.6-4.0) g/dL Albumin/Globulin Ratio (0.9-1.6) Triglycerides 82 (0-200) mg/dL Cholesterol 170 (50-200) mg/dL LDL Cholesterol, Calc 76 (60-180) mg/dL VLDL Cholesterol 16 (5-55) mg/dL HDL Cholesterol 78 H (40-60) mg/dL Cholesterol/HDL Ratio 2.2 L (3.3-6.0) Vitamin B12 459 (193-986) pg/mL TSH, Ultra Sensitive 1.35 (0.36-3.74) uIU/mL Urine Color YELLOW Urine Appearance HAZY Urine pH 6.0 (5.0-8.0) Ur Specific [place] <= 1.005 (1.001-1.035) Urine Protein NEGATIVE (NEGATIVE) mg/dL Urine Glucose (UA) NEGATIVE (NEGATIVE) mg/dL Urine Ketones NEGATIVE (NEGATIVE) mg/dL Urine Occult Blood TRACE-INTACT H (NEGATIVE) Urine Nitrite NEGATIVE (NEGATIVE) Urine Bilirubin NEGATIVE (NEGATIVE) Urine Urobilinogen 0.2 (<2.0) EU/dL Ur Leukocyte Esterase MODERATE H (NEGATIVE) Urine RBC 0-2 (0-2/HPF) Urine WBC 1-3 (0-5/HPF) Ur Epithelial Cells FEW (NONE-FEW) Urine Bacteria FEW (NEGATIVE) Urine Yeast RARE Urine HCG, Qual (NEGATIVE) Urine Opiates Screen (NEGATIVE) Ur Oxycodone Screen (NEGATIVE) Urine Methadone Screen (NEGATIVE) Ur Barbiturates Screen (NEGATIVE) Ur Phencyclidine Scrn (NEGATIVE) Ur Amphetamine Screen (NEGATIVE) U Methamphetamines Scrn (NEGATIVE) U Benzodiazepines Scrn (NEGATIVE) U Cocaine Metab Screen (NEGATIVE) U Marijuana (THC) Screen (NEGATIVE) Ethyl Alcohol mg/dL Influenza Type A RNA (NEGATIVE) RSV RNA (INAAT) (NEGATIVE) Influenza Type B RNA (NEGATIVE) SARS-CoV-2 RNA (STEPHANIE) (NEGATIVE) 06/03/21 06/03/21 06/03/21 Range/Units 11:20 11:20 13:06 WBC (4.0-11.0) K/uL RBC (4.30-5.90) M/uL Hgb (12.0-16.0) g/dL Hct (36.0-46.0) % MCV (80.0-98.0) fL MCH (27.0-32.0) pg MCHC (31.0-37.0) g/dL RDW Std Deviation (28.0-62.0) fl RDW Coeff of Nick (11.0-15.0) % Plt Count (150-400) K/uL MPV (7.40-12.00) fL Neut % (Auto) (48.0-80.0) % Lymph % (Auto) (16.0-40.0) % [place] % (Auto) (0.0-15.0) % Eos % (Auto) (0.0-7.0) % Baso % (Auto) (0.0-1.5) % Neut # (Auto) (1.4-5.7) K/uL Lymph # (Auto) (0.6-2.4) K/uL [place] # (Auto) (0.0-0.8) K/uL Eos # (Auto) (0.0-0.7) K/uL Baso # (Auto) (0.0-0.1) K/uL Nucleated RBC % /100WBC Nucleated RBCs # K/uL ESR (0-19) mm/hr INR APTT (18.6-31.3) SEC Sodium (136-145) mmol/L Potassium (3.5-5.1) mmol/L Chloride (98-107) mmol/L Carbon Dioxide (21.0-32.0) mmol/L BUN (7.0-18.0) mg/dL Creatinine (0.6-1.0) mg/dL Est Cr Clr Drug Dosing mL/min Estimated GFR (MDRD) ml/min Glucose (74-106) mg/dL Calcium (8.5-10.1) mg/dL Phosphorus (2.6-4.7) mg/dL Magnesium (1.8-2.4) mg/dL Total Bilirubin (0.2-1.0) mg/dL AST (15-37) IU/L ALT (14-63) IU/L Alkaline Phosphatase (46-116) U/L Troponin I (0.000-0.056) ng/mL Total Protein (6.4-8.2) g/dL Albumin (3.4-5.0) g/dL Globulin (2.6-4.0) g/dL Albumin/Globulin Ratio (0.9-1.6) Triglycerides (0-200) mg/dL Cholesterol (50-200) mg/dL LDL Cholesterol, Calc (60-180) mg/dL VLDL Cholesterol (5-55) mg/dL HDL Cholesterol (40-60) mg/dL Cholesterol/HDL Ratio (3.3-6.0) Vitamin B12 (193-986) pg/mL TSH, Ultra Sensitive (0.36-3.74) uIU/mL Urine Color Urine Appearance Urine pH (5.0-8.0) Ur Specific [place] (1.001-1.035) Urine Protein (NEGATIVE) mg/dL Urine Glucose (UA) (NEGATIVE) mg/dL Urine Ketones (NEGATIVE) mg/dL Urine Occult Blood (NEGATIVE) Urine Nitrite (NEGATIVE) Urine Bilirubin (NEGATIVE) Urine Urobilinogen (<2.0) EU/dL Ur Leukocyte Esterase (NEGATIVE) Urine RBC (0-2/HPF) Urine WBC (0-5/HPF) Ur Epithelial Cells (NONE-FEW) Urine Bacteria (NEGATIVE) Urine Yeast Urine HCG, Qual NEGATIVE (NEGATIVE) Urine Opiates Screen NEGATIVE (NEGATIVE) Ur Oxycodone Screen NEGATIVE (NEGATIVE) Urine Methadone Screen NEGATIVE (NEGATIVE) Ur Barbiturates Screen NEGATIVE (NEGATIVE) Ur Phencyclidine Scrn NEGATIVE (NEGATIVE) Ur Amphetamine Screen NEGATIVE (NEGATIVE) U Methamphetamines Scrn NEGATIVE (NEGATIVE) U Benzodiazepines Scrn NEGATIVE (NEGATIVE) U Cocaine Metab Screen NEGATIVE (NEGATIVE) U Marijuana (THC) Screen NEGATIVE (NEGATIVE) Ethyl Alcohol mg/dL Influenza Type A RNA NEGATIVE (NEGATIVE) RSV RNA (INAAT) NEGATIVE (NEGATIVE) Influenza Type B RNA NEGATIVE (NEGATIVE) SARS-CoV-2 RNA (STEPHANIE) POSITIVE H (NEGATIVE) 06/04/21 06/04/21 Range/Units 05:47 05:47 WBC 5.46 (4.0-11.0) K/uL RBC 4.34 (4.30-5.90) M/uL Hgb 9.9 L (12.0-16.0) g/dL Hct 32.2 L (36.0-46.0) % MCV 74.2 L (80.0-98.0) fL MCH 22.8 L (27.0-32.0) pg MCHC 30.7 L (31.0-37.0) g/dL RDW Std Deviation 49.2 (28.0-62.0) fl RDW Coeff of Nick 18 H (11.0-15.0) % Plt Count 395 (150-400) K/uL MPV 9.10 (7.40-12.00) fL Neut % (Auto) (48.0-80.0) % Lymph % (Auto) (16.0-40.0) % [place] % (Auto) (0.0-15.0) % Eos % (Auto) (0.0-7.0) % Baso % (Auto) (0.0-1.5) % Neut # (Auto) (1.4-5.7) K/uL Lymph # (Auto) (0.6-2.4) K/uL [place] # (Auto) (0.0-0.8) K/uL Eos # (Auto) (0.0-0.7) K/uL Baso # (Auto) (0.0-0.1) K/uL Nucleated RBC % 0.0 /100WBC Nucleated RBCs # 0 K/uL ESR (0-19) mm/hr INR APTT (18.6-31.3) SEC Sodium 140 (136-145) mmol/L Potassium 3.9 (3.5-5.1) mmol/L Chloride 104 (98-107) mmol/L Carbon Dioxide 27.5 (21.0-32.0) mmol/L BUN 9 (7.0-18.0) mg/dL Creatinine 0.7 (0.6-1.0) mg/dL Est Cr Clr Drug Dosing 100.54 mL/min Estimated GFR (MDRD) > 60.0 ml/min Glucose 87 (74-106) mg/dL Calcium 9.1 (8.5-10.1) mg/dL Phosphorus (2.6-4.7) mg/dL Magnesium (1.8-2.4) mg/dL Total Bilirubin 0.6 (0.2-1.0) mg/dL AST 35 (15-37) IU/L ALT 30 (14-63) IU/L Alkaline Phosphatase 119 H (46-116) U/L Troponin I (0.000-0.056) ng/mL Total Protein 7.2 (6.4-8.2) g/dL Albumin 3.1 L (3.4-5.0) g/dL Globulin 4.1 H (2.6-4.0) g/dL Albumin/Globulin Ratio 0.8 L (0.9-1.6) Triglycerides (0-200) mg/dL Cholesterol (50-200) mg/dL LDL Cholesterol, Calc (60-180) mg/dL VLDL Cholesterol (5-55) mg/dL HDL Cholesterol (40-60) mg/dL Cholesterol/HDL Ratio (3.3-6.0) Vitamin B12 (193-986) pg/mL TSH, Ultra Sensitive (0.36-3.74) uIU/mL Urine Color Urine Appearance Urine pH (5.0-8.0) Ur Specific [place] (1.001-1.035) Urine Protein (NEGATIVE) mg/dL Urine Glucose (UA) (NEGATIVE) mg/dL Urine Ketones (NEGATIVE) mg/dL Urine Occult Blood (NEGATIVE) Urine Nitrite (NEGATIVE) Urine Bilirubin (NEGATIVE) Urine Urobilinogen (<2.0) EU/dL Ur Leukocyte Esterase (NEGATIVE) Urine RBC (0-2/HPF) Urine WBC (0-5/HPF) Ur Epithelial Cells (NONE-FEW) Urine Bacteria (NEGATIVE) Urine Yeast Urine HCG, Qual (NEGATIVE) Urine Opiates Screen (NEGATIVE) Ur Oxycodone Screen (NEGATIVE) Urine Methadone Screen (NEGATIVE) Ur Barbiturates Screen (NEGATIVE) Ur Phencyclidine Scrn (NEGATIVE) Ur Amphetamine Screen (NEGATIVE) U Methamphetamines Scrn (NEGATIVE) U Benzodiazepines Scrn (NEGATIVE) U Cocaine Metab Screen (NEGATIVE) U Marijuana (THC) Screen (NEGATIVE) Ethyl Alcohol mg/dL Influenza Type A RNA (NEGATIVE) RSV RNA (INAAT) (NEGATIVE) Influenza Type B RNA (NEGATIVE) SARS-CoV-2 RNA (STEPHANIE) (NEGATIVE) Med Orders - Current: Current Medications Acetaminophen (Acetaminophen 325 Mg Tab) 650 mg PO Q4H PRN PRN Reason: Pain (Mild 1-3)/fever Last Admin: 06/04/21 08:51 Dose: 650 mg Documented by: Albuterol/Ipratropium (Albuterol/Ipratropium 3.0-0.5 Mg/3 Ml Neb Soln) 3 ml NEB Q4HRRT PRN PRN Reason: Shortness Of Breath/wheezing Ferrous Sulfate (Ferrous Sulfate 325 Mg Tab) 325 mg PO DAILY [facility] Last Admin: 06/04/21 08:51 Dose: 325 mg Documented by: Folic Acid (Folic Acid 1 Mg Tab) 1 mg PO BEDTIME [facility] Last Admin: 06/03/21 20:35 Dose: 1 mg Documented by: Furosemide (Furosemide 20 Mg Tab) 20 mg PO DAILY [facility] Last Admin: 06/04/21 08:51 Dose: 20 mg Documented by: Lorazepam (Lorazepam 2 Mg/Ml Sdv) 0 mg IVPUSH Q6H PRN; Protocol PRN Reason: Withdrawal Symptoms Last Admin: 06/04/21 08:54 Dose: 1 mg Documented by: Ondansetron HCl (Ondansetron 4 Mg/2 Ml Sdv) 4 mg IVPUSH Q4H PRN PRN Reason: Nausea Carvedilol 20mg Er 1 each PO DAILY [facility] Benzocaine/Resorcin/Aloe/E,A,D [Vagisil Cream] 28 Gm Crea 1 each TOP Q12HR [facility] Last Admin: 06/03/21 20:36 Dose: Not Given Documented by: Polyethylene Glycol (Polyethylene Glycol 3350 Powder 17 Gm Packet) 17 gm PO DAILY PRN PRN Reason: Constipation Sodium Chloride (Sodium Chloride 0.9% 10 Ml Syringe) 10 ml FLUSH ASDIRECTED PRN PRN Reason: Keep Vein Open Last Admin: 06/03/21 10:54 Dose: 10 ml Documented by: Sodium Chloride (Sodium Chloride 0.9% 2.5 Ml Syringe) 2.5 ml FLUSH ASDIRECTED PRN PRN Reason: Keep Vein Open Last Admin: 06/03/21 10:54 Dose: 2.5 ml Documented by: Discontinued Medications Gadobenate Dimeglumine (Gadobenate Dimeglumine 529 Mg/Ml 20 Ml Sdv) 20 ml IVPUSH ONETIME STA Stop: 06/03/21 13:05 Last Admin: 06/03/21 13:16 Dose: 14 ml Documented by: Sodium Chloride (Normal Saline) 1,000 mls @ 999 mls/hr IV .BOLUS ONE Stop: 06/03/21 12:26 Last Admin: 06/03/21 11:43 Dose: 999 mls/hr Documented by: Ibuprofen (Ibuprofen 200 Mg Tab) 200 mg PO Q6H PRN PRN Reason: Pain (mild 1-3) Iopamidol (Iopamidol 755 Mg/Ml 500 Ml Multipack Bottle) 100 ml IVPUSH ONETIME STA Stop: 06/03/21 10:42 Last Admin: 06/03/21 10:42 Dose: 100 ml Documented by: Lorazepam (Lorazepam 2 Mg/Ml Sdv) 2 mg IVPUSH ONETIME ONE Stop: 06/03/21 11:28 Last Admin: 06/03/21 11:43 Dose: 2 mg Documented by: Thiamine HCl (Thiamine 200 Mg/2 Ml Mdv) 100 mg IVPUSH ONETIME ONE Stop: 06/03/21 15:16 Last Admin: 06/03/21 16:43 Dose: 100 mg Documented by: - Exam General: Reports: Alert, Oriented, No Acute Distress, Other (Agitated.) HEENT: Reports: Pupils Equal, Pupils Reactive Neck: Reports: Supple, Trachea Midline Lungs: Reports: Clear to Auscultation, Normal Respiratory Effort Cardiovascular: Reports: Regular Rate, Regular Rhythm GI/Abdominal Exam: Normal Bowel Sounds, Soft, Non-Tender Back Exam: Reports: Normal Inspection Skin: Denies: Rash Neurological: Reports: No New Focal Deficit
[2021-06-04] MEDS: BENZOCAINE TOP SCH (11:27)
[2021-06-04] MEDS: [UNRECOGNIZED DRUG - OTHER] TOP SCH (11:27)
[2021-06-04] MEDS: ALOE TOP SCH (11:27)
--- NOTE | 2021-06-07 09:59 | ECHO ---
EXAM DATE: 06/03/21 PATIENT'S AGE: 45 The ECHO report has been scanned into [employer] and can be seen in this patient's EMR (Electronic Medical Record) under the REPORTS section. The report has also been scanned into PACS. PRITI
== END 2021-06-04 13:10 | disposition home or self-care (01) ==
LOC: MW.ED 10:10 → MW.MS 13:41
PROVIDERS: ADMIT Internal Medicine; ATTEND Internal Medicine
DX: R25.1 Tremor, unspecified (principal); R20.2 Paresthesia of skin; F10.11 Alcohol abuse, in remission; F10.139 Alcohol abuse with withdrawal, unspecified; I11.0 Hypertensive heart disease with heart failure; I50.9 Heart failure, unspecified; I25.2 Old myocardial infarction; M06.9 Rheumatoid arthritis, unspecified; Z98.890 Other specified postprocedural states; Z79.899 Other long term (current) drug therapy; Z88.8 Allergy status to other drugs, medicaments and biological substances; Z91.040 Latex allergy status; Z20.822 Contact with and (suspected) exposure to COVID-19
CPT/HCPCS: 0241U; 36415; 70470; 70496; 70498; 70553; 71045; 80053; 80061; 80305; 80307; 81001; 81025; 82607; 83735; 84100; 84443; 84484; 85025; 85027; 85610; 85652; 85730; 86038; 86592; 86593; 86780; 87086; 93005; 93306; 96374; 96375; 99285; A9270; A9577; J2060; J3411; J7030; Q9967

== ENCOUNTER 2021-06-07 15:39 | Emergency (ER) | payer MEDICAID ==
--- NOTE | 2021-06-07 15:42 | PCM.EKG ---
#1 Interpretation EKG Date: 06/07/21 Time: 15:35 Rhythm: NSR Rate (Beats/Min): 66 [place]: Normal P-Wave: Present QRS: Normal ST-T: Normal QT: Normal Comparison: NA - No Prior EKG EKG Interpretation Comments: Sinus Rhythm
[2021-06-07 16:52] LABS: BLOOD UREA NITROGEN,BUN 9 mg/dL (7.0-18.0); CARBON DIOXIDE,CO2 27.6 mmol/L (21.0-32.0); CHLORIDE,CL 99 mmol/L (98-107); GLUCOSE RANDOM 87 mg/dL (74-106); POTASSIUM,K 3.7 mmol/L (3.5-5.1); SODIUM,NA 135 mmol/L (136-145)
--- NOTE | 2021-06-07 17:15 | EDM.PDOC ---
ED HPI GENERAL MEDICAL PROBLEM - General Chief Complaint: Chest Pain Stated Complaint: HYPERTENSION Time Seen by Provider: 06/07/21 15:43 - History of Present Illness INITIAL COMMENTS - FREE TEXT/NARRATIVE: CHIEF COMPLAINT(S): High blood pressure HISTORY OF PRESENT ILLNESS: This is a 45-year-old woman with a past medical history of alcohol use disorder, hypertension, heart failure who comes to the emergency department with a chief complaint of high blood pressure. The patient states that she was at her primary care physician's office when they took her blood pressure and sent here here via ambulance for increased blood pressure. She states that she is not experiencing any new symptoms and has been having a chronic headache which she describes as bifrontal and pounding rated 5 out of 10 without any double vision. She states that her right eye has been blurry and her right hand has been numb however these have been improving since her admission recently. She states that all the symptoms have been going on for a while now. She denies any chest pain, shortness of breath, abdominal pain, lower extremity edema. She states that she was just recently admitted and was discharged and told that it was delirium tremens as she was having twitching. She states that she does drink alcohol daily sometimes a sixpack and sometimes more and has been doing this for years. She states that she has never had alcohol withdrawal before. REVIEW OF SYSTEMS: Constitutional: Denies fever, chills. Eyes: Denies eye pain Ears, Nose, Mouth, & Throat: Denies earache Cardiovascular: Denies chest pain Respiratory: Denies shortness of breath Gastrointestinal: Denies Nausea, vomiting, diarrhea, hematochezia. Genitourinary: Denies hematuria Skin:Denies a rash MSK: Positive for intermittent right hand twitching. Denies joint pain Neurological: Positive for headache, right eye blurry, and right hand numbness. Denies trouble walking, speaking or swallowing Psychiatric: Denies depression PAST MEDICAL HISTORY: As per history of present illness and as reviewed below otherwise noncontributory. SURGICAL HISTORY: As per history of present illness and as reviewed below otherwise noncontributory. SOCIAL HISTORY: As per history of present illness and as reviewed below otherwise noncontributory. FAMILY HISTORY: As per history of present illness and as reviewed below otherwise noncontributory. EXAMINATION OF ORGAN SYSTEMS/BODY AREAS: Constitutional: Blood pressure was 193/109, heart rate 67, respiratory rate 18 with an oxygen saturation of 100% on room air. Temperature 35.5 General: Young woman who does not appear to be in acute distress Psychiatric: Appears mildly anxious but is cooperative Eyes: No scleral icterus or conjunctival erythema ENMT: Moist mucous membranes. No pharyngeal erythema tongue protrudes midline without any fasciculations. Cardiovascular: Regular, rate, and rhythm. No gallops, murmurs, or rubs. Bilateral upper extremity pulses symmetric and intact. No peripheral edema. No JVD. Respiratory: Lungs clear to auscultation bilaterally. No wheezes, rales, or rhonchi. Gastrointestinal: Soft, non-tender, non-distended. Normoactive bowel sounds Genitourinary: No suprapubic tenderness Musculoskeletal: Normal range of motion. No tremors noted Skin: No lesions or abrasions. Neurological: Alert, GCS 15 strength and sensation grossly intact in upper and lower extremities bilaterally MEDICAL DECISION MAKING AND COURSE IN THE ED WITH INTERPRETATION/REVIEW OF DIAGNOSTIC STUDIES: This is a 45-year-old woman with a past medical history of alcohol use disorder and hypertension with recent admission and COVID-19 who comes to the emergency department with chronic symptoms including right hand numbness, headache, and right arm twitching who is hypertensive but does appear anxious. Patient did provide me with a piece of paper with her measured blood pressure management at home. According to her record keeping the patient's blood pressure does drop down to 132 systolic with her current blood pressure regimen. Given that she is in the emergency department I do believe there is a degree of whitecoat hypertension. We will reevaluate her blood pressure. At this time we will obtain an EKG which did not reveal any acute signs of ischemia. Will obtain labs to evaluate for endorgan damage. At this time it is uncertain as to what is causing the patient's chronic symptoms however on review of the patient's recent admission the patient did have a brain MRI, echocardiogram all of which were normal. In addition CT head and CTA of the head and neck were also normal. In October of this year the patient has also had a stress test which was also normal. The patient has already undergone a thorough work-up I do not believe any repeat imaging is indicated at this time. Patient was amenable to this plan. In addition it appears that the patient did have a syphilis screening on June 03, 2021 with a reactive RPR and a very weak RPR titer that is awaiting confirmation testing. Patient also tested Covid positive on that day. Laboratory: CBC reveals a microcytic anemia with a hemoglobin of 9.9 hematocrit of 32.3 which is unchanged. CMP reveals hyponatremia at 135 otherwise unremarkable. Troponin is negative. On reevaluation patient's blood pressure had significantly improved on its own. I do not believe any emergent treatment is indicated at this time. Patient did have a significant work-up inpatient and I do not believe this is secondary to alcohol withdrawal. I discussed she should follow-up with her primary care physician for continued blood pressure management that they need to follow-up on the syphilis test. I did discuss strict return precautions. The patient was amenable to discharge and had no further questions DISPOSITION: The patient was discharged home in stable condition. The patient will follow up with her primary care physician in 3 to 5 days for reevaluation CONDITION: Fair PROCEDURES: None FINAL IMPRESSION(S)/DIAGNOSES: 1. Acute encounter for medical screening examination 2. Hypertension Aries Flannery M.D. chest Pain Score (Numeric/FACES): 5 - Related Data Allergies Allergy/AdvReac Type Severity Reaction Status Date / Time ciprofloxacin [From Cipro] Allergy Other Verified 06/07/21 15:42 clarithromycin [From Biaxin] Allergy Dizziness Verified 06/03/21 15:50 latex Allergy Hives Verified 06/03/21 15:50 Home Meds: Home Meds Furosemide 20 mg PO DAILY 06/03/21 [History] carvediloL [Carvedilol] 20 mg PO DAILY 06/03/21 [History] Past Medical History HEENT History: Reports: None, Otitis Media Cardiovascular History: Reports: Heart Failure, Hypertension, [place] Respiratory History: Reports: None Gastrointestinal History: Reports: None Genitourinary History: Reports: None [employer]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: , Other (See Below) Other [employer]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 Musculoskeletal History: Reports: Arthritis, RA Other Musculoskeletal History: Rheumatoid arthritis Neurological History: Reports: None Psychiatric History: Reports: None Endocrine/Metabolic History: Reports: None Hematologic History: Reports: None Immunologic History: Reports: None Oncologic (Cancer) History: Reports: None Dermatologic History: Reports: None - Infectious Disease History Infectious Disease History: Reports: Chicken Pox - Past Surgical History Head Surgeries/Procedures: Reports: None HEENT Surgical History: Reports: None Cardiovascular Surgical History: Reports: None Respiratory Surgical History: Reports: None GI Surgical History: Reports: None Female Surgical History: Reports: Section, Tubal Ligation Endocrine Surgical History: Reports: None Neurological Surgical History: Reports: None Musculoskeletal Surgical History: Reports: None Oncologic Surgical History: Reports: None Dermatological Surgical History: Reports: None Social & Family History - Family History Family Medical History: No Pertinent Family History Cardiac: Reports: Heart Failure, Hypertension, Other (See Below) Other Cardiac Family History: Lung and Liver Cancer - Caffeine Use Caffeine Use: Reports: Coffee ED ROS GENERAL - Review of Systems Review Of Systems: See Below ED EXAM, GENERAL - Physical Exam Exam: See Below Course - Vital Signs Last Recorded V/S: Last Vital Signs Temp 36.7 C 06/07/21 17:41 Pulse 72 06/07/21 17:41 Resp 20 06/07/21 17:41 BP 161/95 H 06/07/21 17:41 Pulse Ox 98 06/07/21 17:41 - Orders/Labs/Meds Labs: Laboratory Tests 06/07/21 06/07/21 Range/Units 16:14 16:14 WBC 7.99 (4.0-11.0) K/uL RBC 4.38 (4.30-5.90) M/uL Hgb 9.9 L (12.0-16.0) g/dL Hct 32.3 L (36.0-46.0) % MCV 73.7 L (80.0-98.0) fL MCH 22.6 L (27.0-32.0) pg MCHC 30.7 L (31.0-37.0) g/dL RDW Std Deviation 49.0 (28.0-62.0) fl RDW Coeff of Nick 18 H (11.0-15.0) % Plt Count 351 (150-400) K/uL MPV 8.80 (7.40-12.00) fL Neut % (Auto) 62.2 (48.0-80.0) % Lymph % (Auto) 26.5 (16.0-40.0) % Coos % (Auto) 6.5 (0.0-15.0) % Eos % (Auto) 4.3 (0.0-7.0) % Baso % (Auto) 0.5 (0.0-1.5) % Neut # (Auto) 5.0 (1.4-5.7) K/uL Lymph # (Auto) 2.1 (0.6-2.4) K/uL Coos # (Auto) 0.5 (0.0-0.8) K/uL Eos # (Auto) 0.3 (0.0-0.7) K/uL Baso # (Auto) 0.0 (0.0-0.1) K/uL Nucleated RBC % 0.0 /100WBC Nucleated RBCs # 0 K/uL Sodium 135 L (136-145) mmol/L Potassium 3.7 (3.5-5.1) mmol/L Chloride 99 (98-107) mmol/L Carbon Dioxide 27.6 (21.0-32.0) mmol/L BUN 9 (7.0-18.0) mg/dL Creatinine 0.7 (0.6-1.0) mg/dL Est Cr Clr Drug Dosing 98.69 mL/min Estimated GFR (MDRD) > 60.0 ml/min Glucose 87 (74-106) mg/dL Calcium 9.4 (8.5-10.1) mg/dL Total Bilirubin 0.4 (0.2-1.0) mg/dL AST 37 (15-37) IU/L ALT 42 (14-63) IU/L Alkaline Phosphatase 114 (46-116) U/L Troponin I < 0.050 (0.000-0.056) ng/mL Total Protein 8.0 (6.4-8.2) g/dL Albumin 3.6 (3.4-5.0) g/dL Globulin 4.4 H (2.6-4.0) g/dL Albumin/Globulin Ratio 0.8 L (0.9-1.6) Meds: Medications Discontinued Medications Generic Name Dose Route Start Last Admin Trade Name Freq PRN Reason Stop Dose Admin Acetaminophen 1,000 mg 06/07/21 17:23 06/07/21 17:29 Acetaminophen 500 Mg Tab PO 06/07/21 17:24 1,000 mg ONETIME ONE Administration Departure - Departure Time of Disposition: 17:15 Disposition: Home, Self-Care 01 Condition: Fair Clinical Impression: Hypertension - Discharge Information *PRESCRIPTION DRUG MONITORING PROGRAM REVIEWED*: No *COPY OF PRESCRIPTION DRUG MONITORING REPORT IN PATIENT IVAN: No Instructions: Syphilis Test, Hypertension, Adult Referrals: Jessica Knight DO [Primary Care Provider] - Forms: ED Department Discharge Additional Instructions: You were evaluated today on an emergent basis. At this time without any intervention your blood pressure did improve and you had no signs of endorgan damage as your labs were all normal other than the known anemia likely due to iron deficiency anemia. At this time I did review your chart and it appears that you had a normal MRI completed recently in addition to echocardiogram and stress test in October. At this time your blood pressure is at the point where I do not believe emergent treatment is needed and I recommend you follow-up with your primary care physician for further management. In addition as discussed your syphilis screening was positive however the confirmatory test is still pending. I recommend that you and your primary care physician follow-up on this result. If you have any worsening symptoms such as chest pain, shortness of breath I would like you to return to the emergency department. [facility] - Primary Care [address] [place] [address] [place] [address] The patient is informed of any results of their evaluation and diagnostic workup and all questions are answered. They are given discharge instructions and return precautions. The patient is stable for discharge. The patient states they understand and agree with the plan and that they will return if their symptoms get worse or if they have any new concerns. The following information is given to patients seen in the emergency department who are being discharged to home. This information is to outline your options for follow-up care. We provide all patients seen in our emergency department with a follow-up referral. The need for follow-up, as well as the timing and circumstances, are variable depending upon the specifics of your emergency department visit. If you don't have a primary care physician on staff, we will provide you with a referral. We always advise you to contact your personal physician following an emergency department visit to inform them of the circumstance of the visit and for follow-up with them and/or the need for any referrals to a consulting specialist. The emergency department will also refer you to a specialist when appropriate. This referral assures that you have the opportunity for follow-up care with a specialist. All of these measure are taken in an effort to provide you with optimal care, which includes your follow-up. Under all circumstances we always encourage you to contact your private physic marlee who remains a resource for coordinating your care. When calling for follow- up care, please make the office aware that this follow-up is from your recent emergency room visit. If for any reason you are refused follow-up, please contact the [facility] Emergency Department at and asked to speak to the emergency department charge nurse. Sepsis Event Note (ED) - Evaluation Sepsis Screening Result: No Definite Risk
[2021-06-07] MEDS ORDERED: Acetaminophen 500 MG Tab PO ONE (17:23)
== END 2021-06-07 17:44 | disposition home or self-care (01) ==
LOC: MW.ED 15:39
DX: I11.0 Hypertensive heart disease with heart failure (principal); I50.9 Heart failure, unspecified; I25.2 Old myocardial infarction; Z91.040 Latex allergy status; Z88.1 Allergy status to other antibiotic agents
CPT/HCPCS: 36415; 80053; 84484; 85025; 93005; 99284; A9270

== ENCOUNTER 2021-06-09 14:01 | Emergency (ER) | payer MEDICAID ==
--- NOTE | 2021-06-09 14:07 | EDM.PDOC ---
ED HPI GENERAL MEDICAL PROBLEM - General Stated Complaint: HIGH BLOOD PRESSURE Time Seen by Provider: 06/09/21 14:03 Source of Information: Reports: Patient History Limitations: Reports: No Limitations - History of Present Illness INITIAL COMMENTS - FREE TEXT/NARRATIVE: 45-year-old female past medical history alcoholism, hypertension, CHF presents for hypertension and chest pain. Patient was recently discharged from the hospital 1 week ago for alcohol withdrawal. Patient was also seen in the emergency department 2 days ago for hypertension. At that time she was transferred from a physicians outpatient's office. Patient had a negative stress test and echocardiogram in October of this year. She had an extensive work- up on last admission last week including CTA imaging of the head and neck, MRI i maging of the head which was all unremarkable. Patient states that roughly 30 minutes prior to arrival to the emergency department she began to experience a left anterior chest pain. Does not radiate into her arm. States that she always has back pain and she has difficulty differentiating if she has any new back pain. States that she always has shortness of breath and difficult to determine if she is having new or worsening shortness of breath. States that she has chronic lower extremity pain and swelling but nothing changed. Notes that it does hurt worse to take a deep breath in. Denies worsening of symptoms with exertion although denies any exertional activity following onset of pain. chest Pain Score (Numeric/FACES): 8 - Related Data Allergies Allergy/AdvReac Type Severity Reaction Status Date / Time ciprofloxacin [From Cipro] Allergy Other Verified 06/09/21 14:05 clarithromycin [From Biaxin] Allergy Dizziness Verified 06/09/21 14:05 latex Allergy Hives Verified 06/09/21 14:05 Home Meds: Home Meds Furosemide 20 mg PO DAILY 06/03/21 [History] carvediloL [Carvedilol] 20 mg PO DAILY 06/03/21 [History] Iron 1 tab PO DAILY 06/09/21 [History] Losartan [Cozaar] 50 mg PO DAILY #30 tab 06/09/21 [Rx] Past Medical History HEENT History: Reports: None, Otitis Media Cardiovascular History: Reports: Heart Failure, Hypertension, [place] Respiratory History: Reports: None Gastrointestinal History: Reports: None Genitourinary History: Reports: None LION HUNTER History: Reports: , Other (See Below) Other LION HUNTER History: ovarian cysts Musculoskeletal History: Reports: Arthritis, RA Other Musculoskeletal History: Rheumatoid arthritis Neurological History: Reports: None Psychiatric History: Reports: None Endocrine/Metabolic History: Reports: None Hematologic History: Reports: None Immunologic History: Reports: None Oncologic (Cancer) History: Reports: None Dermatologic History: Reports: None - Infectious Disease History Infectious Disease History: Reports: Chicken Pox - Past Surgical History Head Surgeries/Procedures: Reports: None HEENT Surgical History: Reports: None Cardiovascular Surgical History: Reports: None Respiratory Surgical History: Reports: None GI Surgical History: Reports: None Female Surgical History: Reports: Section, Tubal Ligation Endocrine Surgical History: Reports: None Neurological Surgical History: Reports: None Musculoskeletal Surgical History: Reports: None Oncologic Surgical History: Reports: None Dermatological Surgical History: Reports: None Social & Family History - Family History Family Medical History: No Pertinent Family History Cardiac: Reports: Heart Failure, Hypertension, Other (See Below) Other Cardiac Family History: Lung and Liver Cancer - Caffeine Use Caffeine Use: Reports: Coffee ED ROS GENERAL - Review of Systems Review Of Systems: Comprehensive ROS is negative, except as noted in HPI. ED EXAM, GENERAL - Physical Exam Exam: See Below Exam Limited By: No Limitations General Appearance: Alert, WD/WN, No Apparent Distress Ears: Hearing Grossly Normal Throat/Mouth: Normal Voice, No Airway Compromise Respiratory/Chest: No Respiratory Distress, Lungs Clear, Normal Breath Sounds, No Accessory Muscle Use Cardiovascular: Normal Peripheral Pulses, Regular Rate, Rhythm, No Edema Extremities: Normal Inspection, Other (Lower extremities are symmetric without edema, erythema, tenderness to palpation) Neurological: Alert, Normal Cognition, Normal Gait Psychiatric: Normal Affect, Normal Mood Skin Exam: Warm, Dry, Intact, Normal Color #1 Interpretation EKG Date: 06/09/21 Time: 14:03 Rhythm: NSR Rate (Beats/Min): 79 [place]: Normal P-Wave: Present QRS: Normal ST-T: Normal QT: Normal MO/PQ Interval: 121 Comparison: No Change EKG Interpretation Comments: normal EKG Course - Vital Signs Last Recorded V/S: Last Vital Signs Temp 97.2 F 06/09/21 14:06 Pulse 83 06/09/21 14:06 Resp 18 06/09/21 14:06 BP 173/96 H 06/09/21 16:01 Pulse Ox 97 06/09/21 14:06 - Orders/Labs/Meds Orders: Active Orders 24 hr Category Date Time Status Nitroglycerin [Nitrostat] Med 06/09/21 14:16 Active 0.4 mg SL Q5M PRN Saline Lock Insert [OM.PC] Stat Oth 06/09/21 14:16 Ordered Medication Orders Nitroglycerin (Nitroglycerin 0.4 Mg Tab.Sl) 0.4 mg SL Q5M PRN PRN Reason: Chest Pain Last Admin: 06/09/21 14:31 Dose: 0.4 mg Documented by: ALONDRA Labs: Laboratory Tests 06/09/21 06/09/21 06/09/21 Range/Units 14:10 14:10 14:10 WBC 7.47 (4.0-11.0) K/uL RBC 4.41 (4.30-5.90) M/uL Hgb 10.1 L (12.0-16.0) g/dL Hct 32.7 L (36.0-46.0) % MCV 74.1 L (80.0-98.0) fL MCH 22.9 L (27.0-32.0) pg MCHC 30.9 L (31.0-37.0) g/dL RDW Std Deviation 48.9 (28.0-62.0) fl RDW Coeff of Nick 18 H (11.0-15.0) % Plt Count 326 (150-400) K/uL MPV 9.20 (7.40-12.00) fL Neut % (Auto) 63.9 (48.0-80.0) % Lymph % (Auto) 23.3 (16.0-40.0) % [place] % (Auto) 8.4 (0.0-15.0) % Eos % (Auto) 3.5 (0.0-7.0) % Baso % (Auto) 0.9 (0.0-1.5) % Neut # (Auto) 4.8 (1.4-5.7) K/uL Lymph # (Auto) 1.7 (0.6-2.4) K/uL [place] # (Auto) 0.6 (0.0-0.8) K/uL Eos # (Auto) 0.3 (0.0-0.7) K/uL Baso # (Auto) 0.1 (0.0-0.1) K/uL Nucleated RBC % 0.0 /100WBC Nucleated RBCs # 0 K/uL D-Dimer, Quantitative 0.81 H (0.0-0.50) mg/L FEU Sodium 139 (136-145) mmol/L Potassium 3.8 (3.5-5.1) mmol/L Chloride 100 (98-107) mmol/L Carbon Dioxide 26.2 (21.0-32.0) mmol/L BUN 13 (7.0-18.0) mg/dL Creatinine 0.7 (0.6-1.0) mg/dL Est Cr Clr Drug Dosing 98.69 mL/min Estimated GFR (MDRD) > 60.0 ml/min Glucose 91 (74-106) mg/dL Calcium 9.3 (8.5-10.1) mg/dL Total Bilirubin 0.5 (0.2-1.0) mg/dL AST 54 H (15-37) IU/L ALT 58 (14-63) IU/L Alkaline Phosphatase 112 (46-116) U/L Troponin I < 0.050 (0.000-0.056) ng/mL Total Protein 8.3 H (6.4-8.2) g/dL Albumin 3.7 (3.4-5.0) g/dL Globulin 4.6 H (2.6-4.0) g/dL Albumin/Globulin Ratio 0.8 L (0.9-1.6) Ethyl Alcohol < 3.0 mg/dL 06/09/21 Range/Units 16:56 WBC (4.0-11.0) K/uL RBC (4.30-5.90) M/uL Hgb (12.0-16.0) g/dL Hct (36.0-46.0) % MCV (80.0-98.0) fL MCH (27.0-32.0) pg MCHC (31.0-37.0) g/dL RDW Std Deviation (28.0-62.0) fl RDW Coeff of Nick (11.0-15.0) % Plt Count (150-400) K/uL MPV (7.40-12.00) fL Neut % (Auto) (48.0-80.0) % Lymph % (Auto) (16.0-40.0) % [place] % (Auto) (0.0-15.0) % Eos % (Auto) (0.0-7.0) % Baso % (Auto) (0.0-1.5) % Neut # (Auto) (1.4-5.7) K/uL Lymph # (Auto) (0.6-2.4) K/uL [place] # (Auto) (0.0-0.8) K/uL Eos # (Auto) (0.0-0.7) K/uL Baso # (Auto) (0.0-0.1) K/uL Nucleated RBC % /100WBC Nucleated RBCs # K/uL D-Dimer, Quantitative (0.0-0.50) mg/L FEU Sodium (136-145) mmol/L Potassium (3.5-5.1) mmol/L Chloride (98-107) mmol/L Carbon Dioxide (21.0-32.0) mmol/L BUN (7.0-18.0) mg/dL Creatinine (0.6-1.0) mg/dL Est Cr Clr Drug Dosing mL/min Estimated GFR (MDRD) ml/min Glucose (74-106) mg/dL Calcium (8.5-10.1) mg/dL Total Bilirubin (0.2-1.0) mg/dL AST (15-37) IU/L ALT (14-63) IU/L Alkaline Phosphatase (46-116) U/L Troponin I < 0.050 (0.000-0.056) ng/mL Total Protein (6.4-8.2) g/dL Albumin (3.4-5.0) g/dL Globulin (2.6-4.0) g/dL Albumin/Globulin Ratio (0.9-1.6) Ethyl Alcohol mg/dL Meds: Medications Generic Name Dose Route Start Last Admin Trade Name Freq PRN Reason Stop Dose Admin Nitroglycerin 0.4 mg 06/09/21 14:16 06/09/21 14:31 Nitroglycerin 0.4 Mg Tab.Sl SL 0.4 mg Q5M PRN Administration Chest Pain Discontinued Medications Generic Name Dose Route Start Last Admin Trade Name Freq PRN Reason Stop Dose Admin Aspirin 324 mg 06/09/21 14:16 06/09/21 14:24 Aspirin 81 Mg Tab.Chew PO 06/09/21 14:17 324 mg ONETIME ONE Administration Iopamidol 100 ml 06/09/21 15:33 06/09/21 15:34 Iopamidol 755 Mg/Ml 500 Ml Multipack Bottle IVPUSH 06/09/21 15:34 100 ml ONETIME STA Administration Losartan Potassium 50 mg 06/09/21 15:29 06/09/21 16:01 Losartan 50 Mg Tab PO 06/09/21 15:30 50 mg ONETIME ONE Administration - Re-Assessments/Exams Free Text/Narrative Re-Assessment/Exam: 06/09/21 14:20 EKG is unremarkable. Will get labs including troponin and D-dimer to screen for ACS versus pulmonary embolism. Patient did have a recent negative stress test and echocardiogram. 06/09/21 15:18 Patient's initial troponin is negative. D-dimer is elevated so we will get a CTA to rule out pulmonary embolism. 06/09/21 16:25 No evidence of pulmonary embolism on CTA imaging. Will get repeat troponin to ensure no rise. If negative patient can be discharged with PMD follow-up. 06/09/21 17:36 Repeat troponin is negative. Will discharge with losartan prescription and recommend follow-up with primary care physician. Departure - Departure Time of Disposition: 17:36 Disposition: Home, Self-Care 01 Condition: Good Clinical Impression: Hypertension Qualifiers: Hypertension type: unspecified Qualified Code(s): I10 - Essential (primary) hypertension Chest pain Qualifiers: Chest pain type: unspecified Qualified Code(s): R07.9 - Chest pain, unspecified - Discharge Information Prescriptions: Losartan [Cozaar] 50 mg PO DAILY #30 tab Instructions: Nonspecific Chest Pain, Adult, Hypertension, Adult Referrals: Jessica Knight DO [Primary Care Provider] - Additional Instructions: A prescription for an additional blood pressure medication was sent to [place] pharmacy located in the back right corner of the [facility]. Your emergency department work-up was grossly unremarkable with normal labs and a normal CTA scan of your chest. You will need to follow-up with your primary care physician to determine the best blood pressure medication to be on. If you have worsening chest pain or difficulty breathing you should come back to the emergency department for reassessment. Please note that in the emergency department we are only able to screen for medical emergencies and definitive diagnosis must be followed up with your primary care physician. The following information is given to patients seen in the emergency department who are being discharged to home. This information is to outline your options for follow-up care. We provide all patients seen in our emergency department with a follow-up referral. The need for follow-up, as well as the timing and circumstances, are variable depending upon the specifics of your emergency department visit. If you don't have a primary care physician on staff, we will provide you with a referral. We always advise you to contact your personal physician following an emergency department visit to inform them of the circumstance of the visit and for follow-up with them and/or the need for any referrals to a consulting specialist. The emergency department will also refer you to a specialist when appropriate. This referral assures that you have the opportunity for follow-up care with a specialist. All of these measure are taken in an effort to provide you with optimal care, which includes your follow-up. Under all circumstances we always encourage you to contact your private physician who remains a resource for coordinating your care. When calling for follow-up care, please make the office aware that this follow-up is from your recent emergency room visit. If for any reason you are refused follow-up, please contact the [facility] Emergency Department at and asked to speak to the emergency department charge nurse. Please follow up with your primary care physician. If you do not have a primary care physician, see below: [facility] [address] [place] [id number] [facility] [address] [place] [address] [facility] [address], [place] [address] Sepsis Event Note (ED) - Focused Exam Vital Signs: Vital Signs Temp Pulse Resp BP BP Pulse Ox 06/09/21 16:01 173/96 H 06/09/21 14:31 180/102 H 06/09/21 14:06 97.2 F 83 18 174/99 H 97 - My Orders Last 24 Hours: My Active Orders 06/09/21 14:16 Nitroglycerin [Nitrostat] 0.4 mg SL Q5M PRN Saline Lock Insert [OM.PC] Stat - Assessment/Plan Last 24 Hours: My Active Orders 06/09/21 14:16 Nitroglycerin [Nitrostat] 0.4 mg SL Q5M PRN Saline Lock Insert [OM.PC] Stat
[2021-06-09] MEDS ORDERED: Nitroglycerin 0.4 MG Tab.SL SL PRN (14:16)
[2021-06-09] MEDS ORDERED: Aspirin 81 MG Tab.Chew PO ONE (14:16)
[2021-06-09 14:44] LABS: BLOOD UREA NITROGEN,BUN 13 mg/dL (7.0-18.0); CARBON DIOXIDE,CO2 26.2 mmol/L (21.0-32.0); CHLORIDE,CL 100 mmol/L (98-107); GLUCOSE RANDOM 91 mg/dL (74-106); POTASSIUM,K 3.8 mmol/L (3.5-5.1); SODIUM,NA 139 mmol/L (136-145)
--- NOTE | 2021-06-09 14:47 | CR ---
INDICATION: Chest pain COMPARISON: June 03, 2021 TECHNIQUE: AP portable upright single view study FINDINGS: TUBES AND LINES: None. HEART AND MEDIASTINUM: The heart size is normal. The mediastinal contour appears normal for patient age. LUNGS AND PLEURAL SPACES: The lungs appear normal.The pleural spaces are unremarkable. OSSEOUS STRUCTURES: Age-appropriate appearance. No acute focal finding. IMPRESSION: No evidence of active pulmonary disease. Dictated by Kentrell Neal MD @ 06/09/2021 2:46:04 PM (Electronically Signed)
[2021-06-09] MEDS ORDERED: Losartan 50 MG Tab PO ONE (15:29)
[2021-06-09] MEDS ORDERED: Iopamidol 755 MG/ML 500 ML Multipack Bottle IVPUSH STA (15:33)
--- NOTE | 2021-06-09 16:06 | CT ---
INDICATION: Chest pain. Recent COVID. COMPARISON: No prior transaxial studies of the chest TECHNIQUE: : CT examination of the chest was performed with the uneventful intravenous administration of 100 cc of Isovue 370 while thin axial sections were obtained from above the apices of the lungs to the lung bases. Please note that all CT scans at this facility use dose modulation, iterative reconstruction, and/or weight-based dosing when appropriate to reduce radiation dose to as low as reasonably achievable. FINDINGS: : HEART and MEDIASTINUM: The heart size is normal. There is no mediastinal or hilar adenopathy or mass. There is no pericardial effusion. PULMONARY ARTERIAL CIRCULATION: There is no visible intraluminal filling defect to suggest pulmonary embolus. LUNGS: FU patchy dependent opacities probably related atelectasis. PLEURAL SPACES: There is no pleural effusion, pneumothorax or pleural based mass. VISUALIZED UPPER ABDOMEN: Hepatic steatosis. Otherwise, the limited visualized upper abdominal structures appear normal. OSSEOUS STRUCTURES: Age-appropriate appearance. No acute fracture or destructive process. TUBES and LINES: None. IMPRESSION: No finding of pulmonary embolus. A few patchy dependent opacities likely related atelectasis. No pleural effusion or pneumothorax. Hepatic steatosis. Please note that all CT scans at this facility use dose modulation, iterative reconstruction, and/or weight-based dosing when appropriate to reduce radiation dose to as low as reasonably achievable. Dictated by Kentrell Neal MD @ 06/09/2021 4:05:12 PM (Electronically Signed)
== END 2021-06-09 18:02 | disposition home or self-care (01) ==
LOC: MW.ED 14:01
DX: R07.9 Chest pain, unspecified (principal); I11.0 Hypertensive heart disease with heart failure; I50.9 Heart failure, unspecified; I25.2 Old myocardial infarction; M06.9 Rheumatoid arthritis, unspecified; Z88.1 Allergy status to other antibiotic agents; Z91.040 Latex allergy status; Z79.899 Other long term (current) drug therapy
CPT/HCPCS: 36415; 71045; 71275; 80053; 80307; 84484; 85025; 85379; 93005; 99284; A9270; Q9967

== ENCOUNTER 2023-03-07 11:41 | Emergency (ER) | payer MEDICAID ==
[2023-03-07] MEDS ORDERED: Sodium Chloride 0.9% 10 ML Syringe FLUSH PRN (12:57)
[2023-03-07] MEDS ORDERED: Sodium Chloride 0.9% 2.5 ML Syringe FLUSH PRN (12:57)
[2023-03-07] MEDS ORDERED: Carvedilol 6.25 MG Tab PO STA (13:06)
[2023-03-07] MEDS ORDERED: Aspirin 81 MG Tab.Chew PO STA (13:07)
[2023-03-07 13:14] LABS: BASOPHILS PERCENT AUTO 0.3 % (0.0-1.5); EOSINOPHILS ABSOLUTE AUTO 0.1 K/uL (0.0-0.7); HEMATOCRIT 37.8 % (36.0-46.0); HEMOGLOBIN 12.3 g/dL (12.0-16.0); LYMPHOCYTES ABSOLUTE AUTO 1.7 K/uL (0.6-2.4); LYMPHOCYTES PERCENT AUTO 25.6 % (16.0-40.0); MEAN CORPUSCULAR HEMOGLOBIN 29.1 pg (27.0-32.0); MEAN CORPUSCULAR HGB CONC 32.5 g/dL (31.0-37.0); MEAN CORPUSCULAR VOLUME 89.6 fL (80.0-98.0); MONOCYTES ABSOLUTE AUTO 0.4 K/uL (0.0-0.8); NEUTROPHILS ABSOLUTE AUTO 4.6 K/uL (1.4-5.7); NEUTROPHILS PERCENT AUTO 67.1 % (48.0-80.0); NRBC ABSOLUTE 0 K/uL; PLATELET COUNT,PLT 241 K/uL (150-400); RED BLOOD CELL COUNT 4.22 M/uL (4.30-5.90)
[2023-03-07 13:42] LABS: ALBUMIN 3.7 g/dL (3.4-5.0); BILIRUBIN TOTAL 0.3 mg/dL (0.2-1.0); CALCIUM 8.7 mg/dL (8.5-10.1); CARBON DIOXIDE,CO2 26.5 mmol/L (21.0-32.0); CREATININE 0.8 mg/dL (0.6-1.0); EST CRCL DRUG DOSING (CG) 84.54 mL/min; POTASSIUM,K 3.6 mmol/L (3.5-5.1); PROTEIN TOTAL,TP 7.3 g/dL (6.4-8.2)
[2023-03-07 13:45] LABS: MAGNESIUM 1.9 mg/dL (1.8-2.4)
[2023-03-07 14:53] LABS: APPEARANCE,URINE CLEAR; BILIRUBIN,URINE NEGATIVE (NEGATIVE); COLOR,URINE YELLOW; GLUCOSE,URINE NEGATIVE (NEGATIVE); KETONES,URINE NEGATIVE (NEGATIVE); LEUKOCYTE ESTERASE,URINE NEGATIVE (NEGATIVE); NITRITE,URINE NEGATIVE (NEGATIVE); OCCULT BLOOD,URINE NEGATIVE (NEGATIVE); PH,URINE 5.5 (5.0-8.0); PROTEIN,URINE NEGATIVE (NEGATIVE); UROBILINOGEN,URINE 0.2 EU/dL (<2.0)
== END 2023-03-07 16:12 | disposition home or self-care (01) ==
LOC: MW.ED 11:41
DX: I11.0 Hypertensive heart disease with heart failure (principal); I50.9 Heart failure, unspecified; I25.2 Old myocardial infarction; F17.210 Nicotine dependence, cigarettes, uncomplicated; Z20.822 Contact with and (suspected) exposure to COVID-19; Z91.040 Latex allergy status; Z79.899 Other long term (current) drug therapy; Z88.1 Allergy status to other antibiotic agents
CPT/HCPCS: 36415; 71046; 80053; 81003; 83690; 83735; 83880; 84484; 85025; 87635; 93005; 99284; A9270; J3490; 93010; 99283; U0002

== ENCOUNTER 2024-08-22 10:53 | Emergency (ER) | payer MEDICAID ==
[2024-08-22] MEDS ORDERED: Ketorolac 30 MG/ML SDV IM ONE (12:55)
[2024-08-22] MEDS: Acetaminophen 325 MG Tab PO ONE (13:02)
[2024-08-22 13:12] LABS: BASOPHILS ABSOLUTE AUTO 0.05 K/uL (0.00-0.20); BASOPHILS PERCENT AUTO 0.7 % (0.0-1.0); EOSINOPHILS PERCENT AUTO 1.5 % (0.0-6.0); HEMATOCRIT 32.6 % (37.0-47.0); HEMOGLOBIN 10.7 g/dL (12.0-16.0); IMMATURE GRAN ABSOLUTE AUTO 0.01 K/uL (0.00-0.05); IMMATURE GRAN PERCENT AUTO 0.1 % (0.0-0.4); LYMPHOCYTES ABSOLUTE AUTO 1.69 K/uL (1.00-4.80); LYMPHOCYTES PERCENT AUTO 25.1 % (24.0-44.0); MEAN CORPUSCULAR HEMOGLOBIN 26.5 pg (28.0-32.0); MEAN CORPUSCULAR HGB CONC 32.8 g/dL (32.0-36.0); MEAN CORPUSCULAR VOLUME 80.7 fL (83.0-99.0); MONOCYTES ABSOLUTE AUTO 0.47 K/uL (0.00-0.80); NEUTROPHILS ABSOLUTE AUTO 4.42 K/uL (1.80-7.70); NEUTROPHILS PERCENT AUTO 65.6 % (41.0-71.0); PLATELET COUNT,PLT 254 K/uL (150-400); RED BLOOD CELL COUNT 4.04 M/uL (4.10-5.30); WHITE BLOOD CELL COUNT,WBC 6.74 K/uL (3.9-11.3)
[2024-08-22 13:37] LABS: BLOOD UREA NITROGEN,BUN 13 mg/dL (7.0-18.0); CALCIUM 8.9 mg/dL (8.5-10.1); CARBON DIOXIDE,CO2 23.6 mmol/L (21.0-32.0); CHLORIDE,CL 98 mmol/L (98-107); CREATININE 0.8 mg/dL (0.6-1.0); EST CRCL DRUG DOSING (CG) 83.63 mL/min; GLUCOSE RANDOM 90 mg/dL (74-106); POTASSIUM,K 4.1 mmol/L (3.5-5.1); SODIUM,NA 134 mmol/L (136-145)
[2024-08-22 13:38] LABS: ESTIMATED GFR 91 mL/min (>60)
== END 2024-08-22 14:15 | disposition home or self-care (01) ==
LOC: MW.ED 10:53
DX: Z02.89 Encounter for other administrative examinations (principal); I50.9 Heart failure, unspecified; Z91.040 Latex allergy status; Z88.1 Allergy status to other antibiotic agents; Z79.899 Other long term (current) drug therapy; Z86.16 Personal history of COVID-19
CPT/HCPCS: 36415; 80048; 84484; 85025; 93005; 99284; A9270; 93010

== ENCOUNTER 2025-02-08 17:02 | Emergency (ER) | payer MEDICAID ==
[2025-02-08] MEDS: Diphtheria,Pertussis(Acell),Tetanus Vaccine 0.5 ML Syringe IM ONE (17:12)
== END 2025-02-08 17:48 | disposition home or self-care (01) ==
LOC: MW.ED 17:02
DX: S61.011A Laceration without foreign body of right thumb without damage to nail, initial encounter (principal); I50.9 Heart failure, unspecified; F17.200 Nicotine dependence, unspecified, uncomplicated; M19.90 Unspecified osteoarthritis, unspecified site; Z75.3 Unavailability and inaccessibility of health-care facilities; Z88.8 Allergy status to other drugs, medicaments and biological substances; Z91.040 Latex allergy status; Z23 Encounter for immunization; W26.8XXA Contact with other sharp object(s), not elsewhere classified, initial encounter
CPT/HCPCS: 12001; 90471; 99282; J2003; 99283